=== PATIENT | female | born 1960 | race Caucasian/White ===

== ENCOUNTER 2022-11-03 16:00 | Emergency (ER) | payer MEDICAID, SELFPAY ==
--- NOTE | ~2022-11-03 | CT_ITS ---
EXAMINATION: CT ABDOMEN AND PELVIS WITH CONTRAST CLINICAL INFORMATION: Pain. COMPARISON: None available. TECHNIQUE: Multidetector volumetric images were obtained from the superior aspect of the liver through the pubic symphysis following administration 85 mL of Omnipaque 350 intravenous contrast. Sagittal and coronal reformatted images were obtained on the technologist's workstation. Oral contrast: No This CT examination was performed using dose optimization techniques as appropriate, variously including the following: *Automated exposure control *Adjustment of mA and/or kV according to patient size (this includes techniques or standardized protocols for targeted exams where dose is matched to indication/reason for exam; i.e. extremities or head) *Use of iterative reconstruction technique DLP: 683 mGy-cm FINDINGS: LUNG BASES: No focal consolidation or pleural effusion. LIVER, GALLBLADDER, AND BILIARY TREE: The liver is normal in size, shape and attenuation. There are multiple liver lesions with heterogeneous enhancement, not consistent with cysts, for instance measuring 2.3 cm adjacent to the gallbladder fossa (3:19) and 1 cm in the superior right hepatic lobe (3:10). Normal CT appearance of the gallbladder. No findings to suspect acute cholecystitis. No biliary ductal dilatation. PANCREAS: Diffuse fatty infiltration. No significant peripancreatic free fluid nor fat stranding. The main duct is nondilated. SPLEEN: Unremarkable. ADRENAL GLANDS: Unremarkable. KIDNEYS AND URETERS: Simple cortical cysts in the lower left kidney, for which no imaging follow-up is recommended. Several additional too small to characterize bilateral cortical hypodensities, statistically likely to represent as well simple cysts, for which no imaging follow-up is recommended. Punctate nonobstructive renal calculus in the posterior right mid kidney (3:29). Symmetric nephrograms. No hydronephrosis. No perinephric fat stranding. BLADDER: Partially obscured by streak artifacts from bilateral hip arthroplasty, suboptimally assessed. GASTROINTESTINAL TRACT: Small hiatal hernia with mild circumferential wall thickening of the lower esophagus. The stomach and the small bowel are nondilated. Normal appendix. Colonic diverticulosis. No significant pericolonic inflammatory changes. No bowel obstruction. Moderate to large degree of colonic stool content. ABDOMINAL WALL: Small fat-containing umbilical hernia. LYMPH NODES: No lymphadenopathy. VASCULAR: Atherosclerotic disease. Abdominal aorta is normal in diameter. PELVIC VISCERA: Partially obscured by bilateral hip arthroplasties. Equivocal asymmetric prominence of the left ovary (3:70). Trace amount of free fluid, likely physiologic. OSSEOUS STRUCTURES: Total bilateral hip arthroplasties. Degenerative changes of the spine. No acute or aggressive appearing osseous abnormalities. CT/CT abdomen pelvis w IV con IMPRESSION: 1. Small hiatal hernia with mild circumferential wall thickening of the lower esophagus. Correlate clinically for esophagitis. 2. Colonic diverticulosis but no evidence of acute diverticulitis. 3. Moderate to large degree of colonic stool content suggesting constipation. 4. Multiple liver lesions with heterogeneous enhancement, not consistent with cysts. These are indeterminate, further evaluation with an MR of the abdomen with and without intravenous contrast is recommended. 5. Equivocal asymmetric prominence of the left ovary; the pelvic structures are overall suboptimally assessed due to streak artifacts from bilateral hip arthroplasties. If clinically deemed appropriate, correlation with a pelvic ultrasound could be obtained.
[2022-11-03 16:11] VITALS: BP 122/72; BP 133/75; PULSE 90; PULSE 96; RESP 16; TEMP 37.1; O2SAT 97; O2SAT 98; BMI 31.2
--- NOTE | 2022-11-03 16:39 | ECG_ITS ---
Test Reason : pain Blood Pressure : / mmHG Vent. Rate : 080 BPM Atrial Rate : 080 BPM P-R Int : 186 ms QRS Dur : 098 ms QT Int : 412 ms P-R-T Axes : 056 052 057 degrees QTc Int : 475 ms Normal sinus rhythm with sinus arrhythmia Nonspecific T wave abnormality Prolonged QT Abnormal ECG No previous ECGs available Referred By: Ruben Montesinos Electronically Signed By:NILESH JOHN MD
--- NOTE | 2022-11-03 16:41 | ED_ITS ---
HPI - General Adult General Chief complaint: Abdominal Pain Stated complaint: ABDOMINAL PAIN Time Seen by Provider: 11/03/22 16:31 Source: patient, RN notes reviewed and old records reviewed Mode of arrival: EMS Limitations: no limitations History of Present Illness HPI narrative: 62-year-old female with past medical history significant for lloyd, COPD, history of diverticulitis presents for evaluation of abdominal pain. Patient presents from [facility] for abdominal pain that started last night around 10:00 p.m. She had associated nausea and vomiting Denies any diarrhea, black or bloody stool Denies any fevers Reports a history of previous section no other abdominal surgeries She rates her pain as 10/10, sharp constant and ?all over my belly. ? Related Data Previous Rx's Medication Instructions Recorded docusate sodium 100 mg capsule 100 mg PO BID PRN constipation #14 11/03/22 (Dulcolax Stool Softener caps (docusate)) magnesium citrate 300 ml PO ONCE #296 mL 11/03/22 polyethylene glycol 3350 17 17 g PO DAILY 2 weeks #238 grams 11/03/22 gram/dose oral powder (Miralax) Allergies Allergy/AdvReac Type Severity Reaction Status Date / Time Penicillins Allergy Severe Anaphylaxis Verified 11/03/22 16:39 acetaminophen [From Fioricet] Allergy Mild Rash Verified 11/03/22 16:39 butalbital [From Fioricet] Allergy Mild Rash Verified 11/03/22 16:39 caffeine [From Fioricet] Allergy Mild Rash Verified 11/03/22 16:39 quetiapine [From Seroquel] Allergy Mild Rash Verified 11/03/22 16:39 Sulfa (Sulfonamide Allergy Mild Rash Verified 11/03/22 16:39 Antibiotics) Review of Systems Constitutional: Constitutional: Reports as per HPI, Denies chills, Denies fatigue, Denies fever(s) and Denies headache(s) ENT: Denies headache(s) Cardiovascular: Cardiovascular: Denies chest pain and Denies dyspnea Respiratory: Respiratory: Denies cough and Denies dyspnea Gastrointestinal: Gastrointestinal: Reports abdominal pain, Denies constipation, Reports nausea and Reports vomiting Genitourinary: Genitourinary: Denies dysuria Neurologic: Denies headache(s) and Denies focal weakness Endocrine: Endocrine: Denies fatigue PMFSH Social History Social History Alcohol intake: never Smoked in Last 30 Days: No Use of substances other than those prescribed or required for medical reasons: No Advance Directives: Yes Advance Directives Information Provided: No Advance Directives on File: No Patient : Yes Physical Exam ED Vital Signs: Vital Signs - 24 hr 11/03/22 16:11 11/03/22 20:18 Temperature 98.8 F 98.5 F Pulse Rate 96 82 Respiratory Rate 16 17 Blood Pressure 133/75 125/66 Pulse Oximetry 98 97 Oxygen Delivery Method Room Air Room Air BMI result Body Mass Index 31.2 Const General: healthy appearing, comfortable, no acute distress, alert and awake Nutritional Appearance: well nourished Orientation/consciousness: patient oriented x3 HENMT Head: Yes normocephalic and Yes atraumatic Throat: Yes posterior oropharynx normal Eyes Eyelids: Yes eyelids normal Conjunctivae: conjunctivae normal Sclerae: sclerae normal Corneas: corneas normal Pupils: Equal, round and reactive pupils present EOM: EOMs intact bilaterally Neck Neck: Yes full ROM Resp Effort & Inspection: normal respiratory effort, able to speak in complete sentences, no audible wheezes and not labored Auscultation: clear to auscultation bilaterally Cardio Rate: regular rate Rhythm: regular rhythm GI Inspection: No Abdominal wall edema and No distended Palpation (GI): Soft to palpation, not firm, Tenderness to palpation present (GI) (Diffusely tender without guarding), no guarding and not rigid Auscultation: normoactive bowel sounds Skin General skin exam: no rashes or lesions noted and elasticity normal Neuro General: patient oriented x3 Cranial nerves: Yes Equal, round and reactive pupils present and Yes Bilaterally intact EOM present Cognition (Neuro): normal cognition Extrem Other: Moving all extremities well without any obvious deformities Course Reevaluation(s) Reevaluation #1: Nursing staff had difficult time drawing labs and given IV for the patient's medication and CT scan. I was able to get a 20 gauge ultrasound guided IV in the left upper arm. Time: 18:03 Reevaluation #2: Patient's labs are without significant abnormality. Her CT scan shows a small hiatal hernia and circumferential wall thickening the lower esophagus likely related to GERD. Diverticulosis without evidence of diverticulitis. Moderate to large degree of colonic stool which is likely the cause the patient's discomfort as this is diffuse her abdomen. Multiple liver lesions with heterogeneous enhancement not consistent with cysts. Further evaluation is recommended with MRI. Last night also shows equivocal asymmetric prominence of the left ovary. The patient's pain is mostly periumbilical with little lower abdominal pain, this is not felt to be acute issue. I did discuss all findings with the patient upper Time: 21:07 Medications Administered Discontinued Medications Generic Name Dose Route Start Last Admin Trade Name Luzma PRN Reason Stop Dose Admin Sodium Chloride 1,000 mls @ 999 mls/hr 11/03/22 16:45 11/03/22 19:00 Ns IV 11/03/22 17:45 Infused .Q1H1M MICHELINE Infusion Iohexol 100 ml 11/03/22 18:38 11/03/22 18:38 Iohexol 350 Mg/Ml 100 Ml Infus..Btl IV 11/03/22 18:39 85 ml ONCE ONE Administration Metoclopramide HCl 10 mg 11/03/22 19:51 11/03/22 20:10 Metoclopramide Hcl 10 Mg/2 Ml Vial IVPUSH 11/03/22 19:52 10 mg ONCE ONE Administration Morphine Sulfate 4 mg 11/03/22 16:39 11/03/22 18:00 Morphine Sulfate 4 Mg/Ml Cartridge IVPUSH 11/03/22 16:40 4 mg ONCE ONE Administration Protocol Ondansetron HCl 4 mg 11/03/22 16:39 11/03/22 18:00 Ondansetron Hcl 4 Mg/2 Ml Vial IVPUSH 11/03/22 16:40 4 mg ONCE ONE Administration Medical Decision Making Medical Decision Making MDM Narrative: 62-year-old female presents for evaluation abdominal pain. Her abdominal exam is reassuring, soft nondistended and without guarding. Will get basic labs, treat her pain with IV fluids, morphine, Zofran. Will get a UA as well and a CT scan of the abdomen pelvis Differential Diagnosis Abdominal pain Colitis Diverticulitis Acute abdominal pain Gastroenteritis Peptic ulcer disease Pancreatitis Cholelithiasis Acute cholecystitis Lab Data 11/03/22 17:28 Labs: Lab Results 11/03/22 11/03/22 11/03/22 Range/Units 17:21 17:28 17:58 WBC 5.7 (4.8-10.8) X10*3/uL RBC 4.42 (4.20-5.50) X10*6/uL Hgb 12.6 (12.0-16.0) g/dl Hct 38.7 (37.0-47.0) % MCV 87.6 (80.0-98.0) fL MCH 28.5 (27.0-33.0) pg MCHC 32.6 (31.0-35.0) g/dl RDW 14.4 (11.0-16.0) % Plt Count 194 (160-400) X10*3/uL MPV 11.0 (9.4-12.3) fL Immature Gran % (Auto) 0.3 (0.0-0.4) % Neut % (Auto) 45.4 (45-73) % Lymph % (Auto) 42.6 H (20-40) % Tucker % (Auto) 7.9 (2-11) % Eos % (Auto) 2.8 (0-4) % Baso % (Auto) 1.0 (0-2) % Lymph # (Auto) 2.4 (1.2-4.9) X10*3/uL Tucker # (Auto) 0.5 (0.1-1.2) X10*3/uL Eos # (Auto) 0.2 (0.0-0.4) X10*3/uL Baso # (Auto) 0.1 (0.0-0.2) X10*3/uL Abs Immat Gran (auto) 0.02 (0.00-0.03) X10*3/uL Absolute Neuts (auto) 2.6 (2.0-8.3) x10*3/uL Absolute Nucleated RBC 0.000 (0.0-0.012) X10*3/uL Nucleated RBC % (auto) 0.0 (0.0-0.2) /100WBC Smear Tech's Comments VERIFIED Sodium 142 (135-145) mmol/L Potassium 4.3 (3.3-5.1) mmol/L Chloride 108 (96-108) mmol/L Carbon Dioxide 30 H (22-29) mmol/L Anion Gap 8 L (12-20) BUN 13 (9-16) mg/dL Creatinine 0.86 (0.5-1.4) mg/dL Estim Creat Clear Calc 69.5 Estimated GFR > 60 Random Glucose 87 (60-115) mg/dL Calcium 9.6 (8.4-10.2) mg/dL Magnesium 2.0 (1.6-2.6) mg/dL Total Bilirubin 0.7 (0.0-1.0) mg/dL AST 13 (5-31) U/L ALT 12 (0-31) U/L Alkaline Phosphatase 79 (39-117) U/L Total Protein 6.4 L (6.5-8.0) g/dL Albumin 4.3 (3.5-5.0) g/dL Lipase 24 (8-78) U/L Urine Color Yellow Urine Appearance Clear Urine pH 8.5 (5.0-9.0) Ur Specific [place] 1.010 (1.005-1.025) Urine Protein Negative (Neg-Trace) mg/dL Urine Glucose (UA) Negative (Negative) mg/dL Urine Ketones Negative (Negative) mg/dL Urine Blood Negative (Negative) Urine Nitrite Negative (Negative) Ur Leukocyte Esterase Trace H (Negative) Urine RBC 0-2 (0-2) /HPF Urine WBC 0-5 (0-5) /HPF Ur Squamous Epith Cells 0-2 (0-2) /HPF Urine Bacteria None Seen (None Seen) Hyaline Casts 0-2 (0-2) /LPF Discharge Plan Discharge Clinical Impression: Constipation Patient Disposition: Home, Self-Care Instructions: Constipation (ED) Additional Instructions: Your CT scan shows a large amount of constipation which is likely the cause of your abdominal pain today. You should increase fluid intake, increase fiber intake in her diet. Take MiraLax every day for the next 2 weeks You should use Dulcolax twice daily Use magnesium citrate, drink entire bottle tomorrow Your CT scan also showed multiple liver lesions which require further evaluation on outpatient basis. Talk your doctor, as you should have an MRI with and without IV contrast to better evaluate these. This should be done within the next month Prescriptions: New polyethylene glycol 3350 [Miralax] 17 gram/dose powder 17 g PO DAILY 14 Days Qty: 238 0RF docusate sodium [Dulcolax Stool Softener (dss)] 100 mg capsule 100 mg PO BID PRN (Reason: constipation) Qty: 14 0RF magnesium citrate Solution 300 ml PO ONCE Qty: 296 0RF
--- OUTSIDE RECORDS SUMMARY | 2022-11-03 16:51 | XMS_ITS | Continuity of Care Document ---
Author Name Unknown Address [address] [place] [address] Phone [facility] Address [address] [place] [address] Phone Care Team Providers Care Rag Room Supervisor Name Role Phone Alan Guy Emergency Provider [phone] Pcp-Md Jc Primary Care Provider Ulisses Peralta Emergency Provider [phone] Jessica Andino Other Provider [email or web address] [email or web address] Chung Emergency Provider Tyler Hernandez Primary Care Provider [phone] Allergies, Adverse Reactions, Alerts Allergen Type Severity Reaction Last Updated Verified Status Penicillins Allergy Unknown November 10, 2020 12:56pm Yes Active quetiapine Allergy Unknown November 10, 2020 12:56pm Yes Active Sulfa (Sulfonamide Antibiotics) Allergy Unknown November 10, 2020 12:56pm Yes Active Medications Medication Status Dose Units Route Directions Qty Days St art Date End Date Instructions Ondansetron Hcl (Zofran) 4 MG Tablet Active 4 MG PO EVERY 8 HOURS 8 November 06, 2020 4:46pm Tramadol (Ultram) 50 MG Tablet Active 50 MG PO EVERY 6 HOURS 12 November 10, 2020 2:39pm Partial fill available on patient request. Problems Active Problems Medical Problem Onset Date Status Nontraumatic hematoma of skin and subcutaneous t issue Active Abdominal pain Active Chest pain Active Procedures Procedure Date Performed Status US abdomen limited November 10, 2020 11:50am complet ed CT abdomen pelvis w con November 10, 2020 12:48pm co mpleted CT abdomen pelvis w con November 06, 2020 2:22pm com pleted EKG ED Electrocardiogram November 06, 2020 2:23pm co mpleted EKG ED Electrocardiogram November 03, 2020 2:52pm co mpleted XR chest 2V November 03, 2020 2:52pm completed CT angio chest with contrast November 03, 2020 4:29p m completed Relevant Diagnostic Tests and/or Laboratory Data Laboratory Results Test Date/Time Result Interpretation Reference Range Result Comment Performing Site White Blood Count November 10, 2020 11:40am 10.9 X10 3/uL 4.5-11.0 [facility], [address] [place] [address] White Blood Count November 06, 2020 2:45pm 14.2 X10 3/uL 4.5-11.0 [facility], [address] [place] [address] White Blood Count November 03, 2020 2:59pm 8.6 X10 3/uL 4.5-11.0 [facility], [address] [place] [address] Red Blood Count November 10, 2020 11:40am 3.93 X10 6/uL 3.70-5.00 [facility], [address] [place] [address] Red Blood Count November 06, 2020 2:45pm 3.88 X10 6/uL 3.70-5.00 [facility], [address] [place] [address] Red Blood Count November 03, 2020 2:59pm 3.96 X10 6/uL 3.70-5.00 [facility], [address] [place] [address] Hemoglobin November 10, 2020 11:40am 11.6 g/dl 11.0-16.0 [facility], [address] [place] [address] Hemoglobin November 06, 2020 2:45pm 11.4 g/dl 11.0-16.0 [facility], [address] [place] [address] Hemoglobin November 03, 2020 2:59pm 11.6 g/dl 11.0-16.0 [facility], [address] [place] [address] Hematocrit November 10, 2020 11:40am 35.9 % 33.5-45.0 [facility], [address] [place] [address] Hematocrit November 06, 2020 2:45pm 35.2 % 33.5-45.0 [facility], [address] [place] [address] Hematocrit November 03, 2020 2:59pm 36.9 % 33.5-45.0 [facility], [address] [place] [address] Mean Corpuscular Volume November 10, 2020 11:40am 91.3 fl 80.0-100.0 [facility], [address] [place] [address] Mean Corpuscular Volume November 06, 2020 2:45pm 90.7 fl 80.0-100.0 [facility], [address] [place] [address] Mean Corpuscular Volume November 03, 2020 2:59pm 93.2 fl 80.0-100.0 [facility], [address] [place] [address] Mean Corpuscular Hemoglobin November 10, 2020 11:40am 29.5 pg 27.0-34.0 [facility], [address] [place] [address] Mean Corpuscular Hemoglobin November 06, 2020 2:45pm 29.4 pg 27.0-34.0 [facility], [address] [place] [address] Mean Corpuscular Hemoglobin November 03, 2020 2:59pm 29.3 pg 27.0-34.0 [facility], [address] [place] [address] Mean Corpuscular Hemoglobin Concent November 10, 2020 11:40am 32.3 g/dl 31.0-36.0 [facility], [address] [place] [address] Mean Corpuscular Hemoglobin Concent November 06, 2020 2:45pm 32.4 g/dl 31.0-36.0 [facility], [address] [place] [address] Mean Corpuscular Hemoglobin Concent November 03, 2020 2:59pm 31.4 g/dl 31.0-36.0 [facility], [address] [place] [address] Red Cell Distribution Width November 10, 2020 11:40am 13.4 % 11.5-15.0 [facility], [address] [place] [address] Red Cell Distribution Width November 06, 2020 2:45pm 13.2 % 11.5-15.0 [facility], [address] [place] [address] Red Cell Distribution Width November 03, 2020 2:59pm 13.2 % 11.5-15.0 [facility], [address] [place] [address] Platelet Count November 10, 2020 11:40am 184 X10 3/uL 150-400 [facility], [address] [place] [address] Platelet Count November 06, 2020 2:45pm 191 X10 3/uL 150-400 [facility], [address] [place] [address] Platelet Count November 03, 2020 2:59pm 191 X10 3/uL 150-400 [facility], [address] [place] [address] Immature Granulocyte % (Auto) November 10, 2020 11:40am 1.0 % [facility], [address] [place] [address] Immature Granulocyte % (Auto) November 06, 2020 2:45pm 1.7 % [facility], [address] [place] [address] Neutrophils (%) (Auto) November 10, 2020 11:40am 75.4 % [facility], [address] [place] [address] Neutrophils (%) (Auto) November 06, 2020 2:45pm 80.0 % [facility], [address] [place] [address] Neutrophils (%) (Auto) November 03, 2020 2:59pm Not Reportable [facility], [address] [place] [address] Lymphocytes (%) (Auto) November 10, 2020 11:40am 15.4 % [facility], [address] [place] [address] Lymphocytes (%) (Auto) November 06, 2020 2:45pm 11.7 % [facility], [address] [place] [address] Lymphocytes (%) (Auto) November 03, 2020 2:59pm Not Reportable [facility], [address] [place] [address] Monocytes (%) (Auto) November 10, 2020 11:40am 6.6 % [facility], [address] [place] [address] Monocytes (%) (Auto) November 06, 2020 2:45pm 5.4 % [facility], [address] [place] [address] Monocytes (%) (Auto) November 03, 2020 2:59pm Not Reportable [facility], [address] [place] [address] Eosinophils (%) (Auto) November 10, 2020 11:40am 1.3 % [facility], [address] [place] [address] Eosinophils (%) (Auto) November 06, 2020 2:45pm 0.9 % [facility], [address] [place] [address] Eosinophils (%) (Auto) November 03, 2020 2:59pm Not Reportable [facility], [address] [place] [address] Basophils (%) (Auto) November 10, 2020 11:40am 0.3 % [facility], [address] [place] [address] Basophils (%) (Auto) November 06, 2020 2:45pm 0.3 % [facility], [address] [place] [address] Basophils (%) (Auto) November 03, 2020 2:59pm Not Reportable [facility], [address] [place] [address] Immature Granulocyte # (Auto) November 10, 2020 11:40am 0.11 X10 3/uL 0.00-0.09 [facility], [address] [place] [address] Immature Granulocyte # (Auto) November 06, 2020 2:45pm 0.24 X10 3/uL 0.00-0.09 [facility], [address] [place] [address] Neutrophils # (Auto) November 10, 2020 11:40am 8.3 X10 3/uL 1.5-7.8 [facility], [address] [place] [address] Neutrophils # (Auto) November 06, 2020 2:45pm 11.4 X10 3/uL 1.5-7.8 [facility], [address] [place] [address] Neutrophils # (Auto) November 03, 2020 2:59pm Not Reportable [facility], [address] [place] [address] Lymphocytes # (Auto) November 10, 2020 11:40am 1.7 X10 3/uL 1.0-4.8 [facility], [address] [place] [address] Lymphocytes # (Auto) November 06, 2020 2:45pm 1.7 X10 3/uL 1.0-4.8 [facility], [address] [place] [address] Lymphocytes # (Auto) November 03, 2020 2:59pm Not Reportable [facility], [address] [place] [address] Monocytes # (Auto) November 10, 2020 11:40am 0.7 X10 3/uL 0.0-0.8 [facility], [address] [place] [address] Monocytes # (Auto) November 06, 2020 2:45pm 0.8 X10 3/uL 0.0-0.8 [facility], [address] [place] [address] Eosinophils # (Auto) November 10, 2020 11:40am 0.1 X10 3/uL 0.0-0.5 [facility], [address] [place] [address] Eosinophils # (Auto) November 06, 2020 2:45pm 0.1 X10 3/uL 0.0-0.5 [facility], [address] [place] [address] Basophils # (Auto) November 10, 2020 11:40am 0.0 X10 3/uL 0.0-0.2 [facility], [address] [place] [address] Basophils # (Auto) November 06, 2020 2:45pm 0.0 X10 3/uL 0.0-0.2 [facility], [address] [place] [address] Basophils # (Auto) November 03, 2020 2:59pm Not Reportable [facility], [address] [place] [address] Neutrophils % (Manual) November 03, 2020 2:59pm 52 % [facility], [address] [place] [address] Lymphocytes % (Manual) November 03, 2020 2:59pm 31 % [facility], [address] [place] [address] Monocytes % (Manual) November 03, 2020 2:59pm 9 % [facility], [address] [place] [address] Eosinophils % (Manual) November 03, 2020 2:59pm 5 % [facility], [address] [place] [address] Basophils % (Manual) November 03, 2020 2:59pm 1 % [facility], [address] [place] [address] Promyelocytes % (Manual) November 03, 2020 2:59pm 2 % 0-0 [facility], [address] [place] [address] Neutrophils # (Manual) November 03, 2020 2:59pm 4.5 X10 3/uL 1.5-7.8 [facility], [address] [place] [address] Lymphocytes # (Manual) November 03, 2020 2:59pm 2.7 X10 3/uL 1.0-4.8 [facility], [address] [place] [address] Monocytes # (Manual) November 03, 2020 2:59pm 0.8 X10 3/uL 0.0-0.8 [facility], [address] [place] [address] Eosinophils # (Manual) November 03, 2020 2:59pm 0.4 X10 3/uL 0.0-0.5 [facility], [address] [place] [address] Basophils # (Manual) November 03, 2020 2:59pm 0.1 X10 3/uL 0.0-0.2 [facility], [address] [place] [address] Platelet Estimate November 03, 2020 2:59pm Adequate [facility], [address] [place] [address] Platelet Morphology Comment November 03, 2020 2:59pm Normal morphology [facility], [address] [place] [address] Polychromasia November 03, 2020 2:59pm Slight [facility], [address] [place] [address] Microcytosis November 03, 2020 2:59pm Moderate [facility], [address] [place] [address] Ovalocytes November 03, 2020 2:59pm Slight [facility], [address] [place] [address] Nucleated Red Blood Cells % November 10, 2020 11:40am 0.0 /100 WBC 0.0-0.0 [facility], [address] [place] [address] Nucleated Red Blood Cells % November 06, 2020 2:45pm 0.0 /100 WBC 0.0-0.0 [facility], [address] [place] [address] Nucleated Red Blood Cells % November 03, 2020 2:59pm 0.0 /100 WBC 0.0-0.0 [facility], [address] [place] [address] Urine Color November 10, 2020 11:15am Colorless Yellow [facility], [address] [place] [address] Urine Color November 06, 2020 4:10pm Yellow Yellow [facility], [address] [place] [address] Urine Clarity November 10, 2020 11:15am Clear Clear [facility], [address] [place] [address] Urine Clarity November 06, 2020 4:10pm Clear Clear [facility], [address] [place] [address] Urine pH November 10, 2020 11:15am 6.0 5.0-8.0 [facility], [address] [place] [address] Urine pH November 06, 2020 4:10pm 7.0 5.0-8.0 [facility], [address] [place] [address] Urine Specific [place] November 10, 2020 11:15am 1.002 1.003-1.03 0 [facility], [address] [place] [address] Urine Specific [place] November 06, 2020 4:10pm 1.027 1.003-1.03 0 [facility], [address] [place] [address] Urine Blood November 10, 2020 11:15am Negative mg/dl Negative [facility], [address] [place] [address] Urine Blood November 06, 2020 4:10pm Negative mg/dl Negative [facility], [address] [place] [address] Urine Protein November 10, 2020 11:15am Negative mg/dl Negative [facility], [address] [place] [address] Urine Protein November 06, 2020 4:10pm Negative mg/dl Negative [facility], [address] [place] [address] Urine Glucose (UA) November 10, 2020 11:15am Negative mg/dl Negative [facility], [address] [place] [address] Urine Glucose (UA) November 06, 2020 4:10pm Negative mg/dl Negative [facility], [address] [place] [address] Urine Ketones November 10, 2020 11:15am Negative mg/dl Negative [facility], [address] [place] [address] Urine Ketones November 06, 2020 4:10pm Negative mg/dl Negative [facility], [address] [place] [address] Urine Nitrate November 10, 2020 11:15am Negative Negative [facility], [address] [place] [address] Urine Nitrate November 06, 2020 4:10pm Negative Negative [facility], [address] [place] [address] Urine Bilirubin November 10, 2020 11:15am Negative mg/dl Negative [facility], [address] [place] [address] Urine Bilirubin November 06, 2020 4:10pm Negative mg/dl Negative [facility], [address] [place] [address] Urine Urobilinogen November 10, 2020 11:15am Normal mg/dl Normal [facility], [address] [place] [address] Urine Urobilinogen November 06, 2020 4:10pm Normal mg/dl Normal [facility], [address] [place] [address] Urine Leukocyte Esterase November 10, 2020 11:15am Negative Negative [facility], [address] [place] [address] Urine Leukocyte Esterase November 06, 2020 4:10pm Negative Negative [facility], [address] [place] [address] Sodium Level November 10, 2020 11:40am 138 mmol/L 137-146 [facility], [address] [place] [address] Sodium Level November 06, 2020 1:55pm 135 mmol/L 137-146 [facility], [address] [place] [address] Sodium Level November 03, 2020 2:59pm 139 mmol/L 137-146 [facility], [address] [place] [address] Potassium Level November 10, 2020 11:40am 4.0 mmol/L 3.5-5.3 [facility], [address] [place] [address] Potassium Level November 06, 2020 1:55pm 5.2 mmol/L 3.5-5.3 Gross hemolysis, please redraw specimen [facility], [address] [place] [address] Potassium Level November 03, 2020 2:59pm 3.8 mmol/L 3.5-5.3 [facility], [address] [place] [address] Chloride Level November 10, 2020 11:40am 105 mmol/L 98-107 [facility], [address] [place] [address] Chloride Level November 06, 2020 1:55pm 105 mmol/L 98-107 [facility], [address] [place] [address] Chloride Level November 03, 2020 2:59pm 105 mmol/L 98-107 [facility], [address] [place] [address] Carbon Dioxide Level November 10, 2020 11:40am 21 mmol/L 23-32 [facility], [address] [place] [address] Carbon Dioxide Level November 06, 2020 1:55pm 19 mmol/L -32 [facility], [address] [place] [address] Carbon Dioxide Level November 03, 2020 2:59pm 21 mmol/L 23-32 [facility], [address] [place] [address] Anion Gap November 10, 2020 11:40am 12 mmol/L 5-15 [facility], [address] [place] [address] Anion Gap November 06, 2020 1:55pm 11 mmol/L 5-15 [facility], [address] [place] [address] Anion Gap November 03, 2020 2:59pm 13 mmol/L 11-16 [facility], [address] [place] [address] Blood Urea Nitrogen November 10, 2020 11:40am 14 mg/dl 11-26 [facility], [address] [place] [address] Blood Urea Nitrogen November 06, 2020 1:55pm 22 mg/dl 11-26 [facility], [address] [place] [address] Blood Urea Nitrogen November 03, 2020 2:59pm 20 mg/dl 11-26 [facility], [address] [place] [address] Creatinine November 10, 2020 11:40am 0.8 mg/dL 0.5-1.1 [facility], [address] [place] [address] Creatinine November 06, 2020 1:55pm 0.9 mg/dL 0.5-1.1 [facility], [address] [place] [address] Creatinine November 03, 2020 2:59pm 0.8 mg/dL 0.5-1.1 [facility], [address] [place] [address] Estimated Creatinine Clearance November 10, 2020 11:40am 78.6 ml/min This value is calculated by Cockcroft Gault Equation using ideal body weight. This result is dependent on an accurate patient height and weight which is obtained from patients medical record. Arjuncroft, D.W. and M.H. Gault. Prediction of creatinine clearance from serum creatinine. Nephron. 1976. 16(1):31-41 . [facility], [address] [place] [address] Estimated Creatinine Clearance November 06, 2020 1:55pm 69.7 ml/min This value is calculated by Cockcroft Gault Equation using ideal body weight. This result is dependent on an accurate patient height and weight which is obtained from patients medical record. Cockcroft, D.W. and M.H. Gault. Prediction of creatinine clearance from serum creatinine. Nephron. 1975. 16(1):31-41 . [facility], [address] [place] [address] Estimated Creatinine Clearance November 03, 2020 2:59pm 76.3 ml/min This value is calculated by Cockcroft Gault Equation using ideal body weight. This result is dependent on an accurate patient height and weight which is obtained from patients medical record. Cockcroft, D.W. and M.H. Gault. Prediction of creatinine clearance from serum creatinine. Nephron. 1976. 16(1):31-41 . [facility], [address] [place] [address] Estimated GFR () November 10, 2020 11:40am 92 >60 [facility], [address] [place] [address] Estimated GFR () November 06, 2020 1:55pm 80 >60 [facility], [address] [place] [address] Estimated GFR () November 03, 2020 2:59pm 92 >60 [facility], [address] [place] [address] Estimated GFR (Non- November 10, 2020 11:40am 80 >60 [facility], [address] [place] [address] Estimated GFR (Non- November 06, 2020 1:55pm 69 >60 [facility], [address] [place] [address] Estimated GFR (Non- November 03, 2020 2:59pm 80 >60 [facility], [address] [place] [address] BUN/Creatinine Ratio November 10, 2020 11:40am 17.5 10.0-20.0 [facility], [address] [place] [address] BUN/Creatinine Ratio November 06, 2020 1:55pm 24.4 10.0-20.0 [facility], [address] [place] [address] BUN/Creatinine Ratio November 03, 2020 2:59pm 25.0 10.0-20.0 [facility], [address] [place] [address] Glucose Level November 10, 2020 11:40am 94 mg/dL [facility], [address] [place] [address] Glucose Level November 06, 2020 1:55pm 95 mg/dL [facility], [address] [place] [address] Glucose Level November 03, 2020 2:59pm 125 mg/dL [facility], [address] [place] [address] Calcium Level November 10, 2020 11:40am 9.3 mg/dl 8.6-10.3 [facility], [address] [place] [address] Calcium Level November 06, 2020 1:55pm 8.7 mg/dl 8.6-10.3 [facility], [address] [place] [address] Calcium Level November 03, 2020 2:59pm 8.8 mg/dl 8.6-10.3 [facility], [address] [place] [address] Total Bilirubin November 10, 2020 11:40am 0.5 mg/dl <1.1 [facility], [address] [place] [address] Total Bilirubin November 06, 2020 1:55pm 0.3 mg/dl <1.1 [facility], [address] [place] [address] Aspartate Amino Transf (AST/SGOT) November 10, 2020 11:40am 15 U/L 15-41 [facility], [address] [place] [address] Aspartate Amino Transf (AST/SGOT) November 06, 2020 1:55pm 29 U/L 15-41 Specimen hemolyzed, results affected, evaluate with caution. [facility], [address] [place] [address] Alanine Aminotransferase (ALT/SGPT) November 10, 2020 11:40am 22 U/L 14-54 [facility], [address] [place] [address] Alanine Aminotransferase (ALT/SGPT) November 06, 2020 1:55pm 15 U/L 14-54 Gross hemolysis, evaluate with caution [facility], [address] [place] [address] Troponin T November 06, 2020 1:55pm < 0.01 ng/ml [facility], [address] [place] [address] Troponin T November 03, 2020 2:59pm < 0.01 ng/ml [facility], [address] [place] [address] Total Protein November 10, 2020 11:40am 6.5 g/dL 6.4-8.3 [facility], [address] [place] [address] Total Protein November 06, 2020 1:55pm 6.3 g/dL 6.4-8.3 [facility], [address] [place] [address] Albumin November 10, 2020 11:40am 4.2 g/dl 4.0-5.0 [facility], [address] [place] [address] Albumin November 06, 2020 1:55pm 3.6 g/dl 4.0-5.0 [facility], [address] [place] [address] Albumin/Globulin Ratio November 10, 2020 11:40am 1.8 1.0-2.6 [facility], [address] [place] [address] Albumin/Globulin Ratio November 06, 2020 1:55pm 1.3 1.0-2.6 [facility], [address] [place] [address] Alkaline Phosphatase November 10, 2020 11:40am 89 U/L 35-104 [facility], [address] [place] [address] Alkaline Phosphatase November 06, 2020 1:55pm 77 U/L 35-104 Gross hemolysis, evaluate with caution [facility], [address] [place] [address] Lipase November 10, 2020 11:40am 35 U/L 13-60 [facility] [address] [place] [address] Lipase November 06, 2020 1:55pm 40 U/L 13-60 [facility], [address] [place] [address] Diagnostic Imaging Reports Report Dictated Date/Time Dictated By Status Radiology Report November 03, 2020 4:18pm Bhumi Kelley MD completed [facility] [address] [place] [address] Patient Name: Racquel Khan Medical Record#: [id number] Address: [address] [place] [address] City/State/Zip: [place] [address]: Desean Guy MD Insurance: [employer] [facility] Re quired /Age/Sex: 1960/60/F Self Pay Admit/Reg Date: 11/03/[address]: Alan Guy MD Location: ED.HM/ PCP: Pcp-Md MARTHA Greene Date of Service: 11/03/20 Order (s): XR chest 2V CPT Code: 81709 Report Number: [id number] Reason for Exam: Chest Pain Patient name: RACQUEL KHAN INDICATION:Chest pain PRIORS:None available. FINDINGS: Two views of the chest. The cardiac silhouette and mediastinum are normal in size and contour. The lungs are clear without pneumonia, pleural effusions, or pulmonary edema. IMPRESSION: No acute cardiopulmonary disease. Dictated By: Bhumi Kelley MD 11/03/201617 Signed By: Bhumi Kelley MD 11/03/201617 TD/TT: 11/03/201617Tech: [id number] cc: MCEST; PCPNO* PcpMd Lino ; Alan Guy MD Radiology Report November 03, 2020 5:05pm Sheldon Burnette MD completed [facility] at [address] [address] Patient Name: Racquel Khan Medical Record#: [id number] Address: [address] [place] [address] City/State/Zip: [place] [address]: Desean Guy MD Insurance: [facility] Re quired /Age/Sex: 1960/60/F Self Pay Admit/Reg Date: 11/03/[address]: Alan Guy MD Location: ED.HM/ PCP: PcpMd MARTHA Huynh Date of Service: 11/03/20 Order (s): CT angio chest with contrast CPT Code: 67288 Report Number: [id number] Reason for Exam: chest pain,shortness of breath CT PULMONARY ANGIOGRAPHY ([id number]) Technique: Noncontrast asbestos microscopist image and axial localizer images performed prior to intravenous contrast administration.Automated exposure control and iterative reconstruction techniques were used. Intravenous contrast administered at 3-4 cc per second. Axial images obtained through the chest during vascular enhancement. Multiplanar MIP images generated on CT scanner. History: chest pain,shortness of breath Automated exposure control and iterative reconstruction techniques were used. Findings: The pulmonary arteries are well opacified. No evidence of any intraluminal filling defects nor vascular cutoff are noted. The lung parenchyma is clear. No pleural reaction is seen. No evidence of hilar nor mediastinal lymphadenopathy is noted. IMPRESSION: No evidence of pulmonary thromboembolic disease. Dictated By: Sheldon Burnette MD 11/03/201704 Signed By: Sheldon Orlando MD 11/03/201707 TD/TT: 11/03/20 1705Tech: [id number] cc: MCEST; PCPNO* Pcp-Md Jc ; Alan Guy MD Radiology Report November 06, 2020 3:30pm César Dawkins MD completed [facility] at [address] [place] [address] Patient Name: Racquel Khan Medical Record#: [id number] Address: [address] [place] [address] City/State/Zip: [place] [address]: Ulisses Phillips MD Insurance: [facility] Re quired /Age/Sex: 1960/60/F Self Pay Admit/Reg Date: 11/06/[address]: Jessica Andino, [facility] Location: ED.HM/ PCP: Pcp-Md MARTHA Greene Date of Service: 11/06/20 Order (s): CT abdomen pelvis w con CPT Code: 36156 Report Number: [id number] Reason for Exam: abd pain, nausea Patient name: Racquel Khan Exam: CT abdomen pelvis w con Technique: CT of the abdomen and pelvis with intravenous contrast. Axial as well as coronal and sagittal reformatted images were reviewed. All CT scans at this facility use at least one of these dose optimization techniques; automated exposure control, MA and or KV adjustment per patient size (includes targeted exams where dose is matched to clinical indication), or iterative reconstruction. Procedure Date and Time:11/06/2020 3:16 PM Indication: abd pain, nausea Comparison: None. Intravenous Contrast: Omnipaque 350 100 ml. Oral Contrast: Findings: LOWER THORAX: Unremarkable LIVER: Liver attenuation is unremarkable. Small hepatic cysts BILIARY: No radio-opaque gallstones. No biliary dilatation. SPLEEN: Unremarkable. ADRENALS: Unremarkable. PANCREAS: Subtle haziness of the pancreas. Exclude pancreatitis. KIDNEYS/URETERS: There is no hydronephrosis or enhancement abnormality. Left renal cyst GI TRACT: There is no abnormal distention or focal inflammatory process of the GI tract. PELVIC ORGANS/BLADDER: No abnormal pelvic masses. Full bladder PERITONEUM/RETROPERITONEUM: No free air. No free fluid. No unusual vascular findings for the patient's age. No lymphadenopathy. BONES AND SOFT TISSUES: Bilateral hip replacements IMPRESSION: SUBTLE HAZINESS OF THE PANCREAS. EXCLUDE PANCREATITIS Dictated By: César Dawkins MD 11/06/20 153 Signed By: César Dawkins MD 11/06/20 153 TD/TT: 11/06/20 1530Tech: [id number] cc: GIGI; RIN HALL* Ulisses Phillips MD; Jessica Andino PAC; Pcp-Md Jc Radiology Report November 10, 2020 1:41pm Heidi Wahl MD completed [address] [place] [address] [address] Patient Name: Racquel Khan Medical Record#: [id number] Address: [address] [place] [address] City/State/Zip: [place] [address]: Javier laguerre MD Insurance: [facility] Re quired /Age/Sex: 1960/60/F Self Pay Admit/Reg Date: 11/10/[address]: Andrew Todd Location: ED.HM/ PCP: Tyler Hernandez Date of Service: 11/10/20 Order (s): US abdomen limited CPT Code: 86384 Report Number: [id number] Reason for Exam: ruq pain with rebound Exam: US abdomen limited Indication: ruq pain with rebound Comparison: Images from a CT scan from 11/06/2020 Findings:Sonographic examination of the right upper quadrant was performed.There is a 1.7 x 1.2 x 1.2 cm cyst in the left lobe of the liver. Other smaller cysts also seen. There is no biliary ductal dilatation. The common duct measures 4 mm. The gallbladder appears unremarkable. No gallstones are seen. The right kidney measures 11.1 cm in length. There is no hydronephrosis. There is a 6 mm cyst that appears to be at the anterior edge of body the pancreas, no soft tissue component seen within it. On review of the CT images, it appears that there is one at the edge of the pancreas, quite subtle and better seen on sagittal and coronal images. The pancreas otherwise appears unremarkable. The visualized IVC has an unremarkable ultrasound appearance. IMPRESSION: NO EVIDENCE OF CHOLELITHIASIS OR CHOLECYSTITIS. SMALL BENIGN-APPEARING CYSTS IN THE LIVER. SMALL CYST AT THE ANTERIOR EDGE OF THE BODY OF THE PANCREAS, LIKELY BENIGN BUT RECOMMEND FOLLOW-UP ULTRASOUND IN SIX MONTHS TO ASSESS FOR STABILITY. Dictated By: Heidi Wahl MD 11/10/201340 Signed By: Heidi Wahl MD 11/10/20 1348 TD/TT: 11/10/201340Tech: [id number] cc: RADHA; CORINE* Tyler Hernandez; Javier Chung MD Radiology Report November 10, 2020 1:53pm Heidi Wahl MD completed [facility] at [address] [address] Patient Name: Racquel Khan Medical Record#: [id number] Address: [address] [place] [address] City/State/Zip: [place] [address]: Javier laguerre MD Insurance: [employer] [facility] Re quired /Age/Sex: 1960/60/F Self Pay Admit/Reg Date: 11/10/[address]: Andrew Todd Location: ED.HM/ PCP: Tyler Hernandez Date of Service: 11/10/20 Order (s): CT abdomen pelvis w con CPT Code: 08258 Report Number: [id number] Reason for Exam: severe pain to the right middle abdomin ADDENDUM There are two round foci in the subcutaneous fat in the antrum anterior abdominal wall on the right and one seen on the left. One of these has a focus of air in it on the 11/06/2020 study so these are likely injection granulomas. No inflammation seen surrounding them. Addendum Dictated By: Heidi Wahl MD Addendum Signed By: Heidi Wahl MD 11/10/20 1501 DD/ /25/1459 TD/TT: 11/10/2003/25/1459 Exam: CT abdomen pelvis w con Technique: Spiral CT of the abdomen and pelvis with intravenous contrast. Multiplanar reconstructions were obtained, reviewed, and archived. Dose modulation with automated exposure control was used as dose reduction technique during the acquisition. Indication: severe pain to the right middle abdomin Additional clinical history:None. Comparison: 11/06/2020 Intravenous Contrast:100 cc of Omnipaque 350. Oral contrast:None. Findings: The visualized lung bases appear clear. There is no pleural effusion. There are several small cysts in the liver, largest is in the left lobe and measures 12 mm. There is no biliary ductal dilatation. The gallbladder has an unremarkable CT appearance. The spleen and adrenal glands appear unremarkable. There is a small cyst at the anterosuperior edge of the pancreas as better seen on ultrasound from earlier today, measures 6 mm. No definite convincing inflammation around the pancreas. There is a 2 mm calculus at the upper pole of the right kidney. No ureteral calculus. No hydronephrosis. There are renal cysts. The largest is in lower pole of the left kidney and measures 1.7 cm The appendix is retrocecal, extending to the right mid abdomen. Is mildly prominent, measures probably 7-8 mm. It appears slightly denser at the midportion, may be due to wall or contents, if the wall raises the possibility of hyperemia. However, some increased density was also seen on the prior and the size is similar to on the prior. Wall actually appeared slightly thicker on the prior. No inflammation is seen surrounding it so no convincing evidence of appendicitis. There is diverticulosis without evidence of diverticulitis. Evaluation of the pelvic organs is limited by severe artifact from bilateral hip prostheses. The uterus and adnexal regions appear to be unremarkable. Urinary bladder appears unremarkable. There is arterial calcification without an abdominal aortic aneurysm. Bilateral hip prostheses are in place. There is an incidental L5-S1 disc bulge without spinal canal or neural foraminal stenosis. There is a small fat-containing umbilical hernia. There are surgical clips in the right pelvis. IMPRESSION: NO DEFINITE ABNORMALITY IDENTIFIED TO ACCOUNT FOR THE PATIENT'S SYMPTOMS. RETROCECAL APPENDIX. APPENDIX IS SLIGHTLY PROMINENT WITH SLIGHTLY INCREASED DENSITY IN THE MIDPORTION THAT MAY BE DUE TO SLIGHT HYPEREMIA OR CONTENTS, DISCUSSED ABOVE, BUT APPEARS SIMILAR TO ON 11/06/2020 AND WITH NO INFLAMMATION AROUND IT, SO NO DEFINITE EVIDENCE OF APPENDICITIS. FOLLOW-UP COULD BE OBTAINED IF CLINICALLY INDICATED. Dictated By: Heidi Wahl MD 11/10/20 1353 Signed By: Heidi Wahl MD 11/10/20 1416 TD/TT: 11/10/20 1353Tech: [id number] cc: RADHA; KARLIE3* Tyler Hernandez; Javier Chung MD Advance Directives Advance Directive Response Recorded Date/ Time Advance Directives No November 10, 2020 11:06am Health Care Proxy No November 10, 2020 11:06am Advance Directives No November 06, 2020 1:28pm Health Care Proxy No November 06, 2020 1:28pm Advance Directives No November 03, 2020 2:42pm Health Care Proxy No November 03, 2020 2:42pm Encounters Encounter Location(s) Arrival/Admit Date Discharge/Depart Date Provider(s) Departed Emergency [facility] Emergency Room Department November 03, 2020 2:41pm November 03, 2020 6:53pm null Departed Emergency [facility] Emergency Room Department November 06, 2020 1:25pm November 06, 2020 7:44pm null Departed Emergency [facility] Emergency Room Department November 10, 2020 11:06am November 10, 2020 8:11pm null Assessments No Assessments Information Available Functional Status No Functional Status information available Goals Acute Goals See your doctor this week. R eturn if fevers, difficulty breathing, worsening symptoms, or any problems As discussed please take the medication as prescribed. You can take supplement Tylenol and/or Motrin at home for pain or fever. Please continue to monitor your symptoms at home, if you have any new or worsening symptoms or feel that you need to be reevaluated please return to the emergency department immediately. Otherwise it is extremely important that you follow-up with your primary care doctor within the next 2 days to determine if any further work-up is needed, please follow-up with the appropriate specialties that were discussed during your stay here in the emergency department, if any were discussed. Mental Status No Mental Status Information Available Medical Equipment No Medical Equipment Information available Insurance Providers Guarantor Racquel Khan Address [address] [id number] Contact Info. Home Phone: Payer Policy Id Coverage Id Subscriber's Name Subscriber Id Effective Date Expiration Date [facility] Required [id number] RACQUEL KHAN [id number] Self Pay Self N/A Plan of Treatment Future Tests Future scheduled test information is unavailable Pending Tests Pending diagnostic test information is unavailable Future Visits Future appointment information is unavailable Referrals to Other Providers Reason for Referral Referral Start Date Provider Provider Contact Information Provider Address Md Pcp-None Future Procedures Future procedure information is unavailable Future Medications Future medication information is unavailable Patient Instructions ED Chest Pain Atypical Unkn Cause ED Hematoma Social History Smoking Status Status Date of Observation Ex-smoker (finding) November 10, 2020 11:21a m Observation Status Observation Response Date of Response Lives With Family November 10, 2020 11 :21am Living Situation Private Home November 03, 2020 2 :54pm Assigned Sex Female Vital Signs Vital Reading Result Reference Range Collection Date/Time Height 162.56 cm November 03, 2020 2 :47pm Weight 81.64 kg November 03, 2020 2 :47pm Body Temperature 98.6 [degF] 97.6-99.6 November 03 2:47pm Heart Rate 89 /min 60-90 November 03, 2020 5 :20pm Respiratory rate 20 /min -November 03 5:20pm Oxygen saturation by Pulse oximetry 97 % 95-10 0 November 03, 2020 5:20pm BP Systolic 117 mm[Hg] 90-140 November 03, 2020 5 :20pm BP Diastolic 63 mm[Hg] 60-90 November 03, 2020 5 :20pm BMI (Body Mass Index) 30.9 kg/m2 November 2:47pm Height 162.56 cm November 06, 2020 1 :34pm Weight 86.18 kg November 06, 2020 1 :34pm Body Temperature 98 [degF] 97.6-99.6 November 06 1:34pm Heart Rate 106 /min 60-90 November 06, 2020 1 :34pm Respiratory rate 20 /min -November 06 1:34pm Oxygen saturation by Pulse oximetry 97 % 95-10 0 November 06, 2020 1:34pm BP Systolic 148 mm[Hg] 90-140 November 06, 2020 1 :34pm BP Diastolic 80 mm[Hg] 60-90 November 06, 2020 1 :34pm BMI (Body Mass Index) 32.6 kg/m2 November 1:34pm Height 162.56 cm May 9th, 2021 1 1:13am Weight 86.58 kg November 10, 2020 1 1:13am Body Temperature 98.1 [degF] 97.6-99.6 November 10 11:13am Heart Rate 97 /min 60-90 November 10, 2020 1 1:13am Respiratory rate 20 /min 12-24 November 10 11:13am Oxygen saturation by Pulse oximetry 99 % 95-10 0 November 10, 2020 11:13am BP Systolic 121 mm[Hg] 90-140 November 10, 2020 1 1:13am BP Diastolic 78 mm[Hg] 60-90 November 10, 2020 1 1:13am BMI (Body Mass Index) 32.8 kg/m2 November 11:13am
--- OUTSIDE RECORDS SUMMARY | 2022-11-03 16:51 | XMS_ITS ---
Author Name Nikolay Banks Address [address] [place] [address] Organization [facility] Address [address] [place] [address] Care Team Providers Care Lye Machine Operator Name Role Phone Nikolay Banks Unavailable [phone] PROBLEMS Type Condition ICD9-CM Code PHX10-ZF Code Onset Dates Condition Status SNOMED Code Problem Migraine G43.909 Active 05632198 Problem Anxiety F41.9 Active 61971301 Problem Chronic obstructive lung disease J44.9 Active 22815402 Problem Bipolar 1 disorder F31.9 Active 094240549 Problem Stroke I63.9 Active 639719817 ALLERGIES Substance Reaction Event Type Date Status Quetiapine Unknown Drug Allergy May, Active Sulfa Antibiotics Unknown Drug Allergy May, Act yifan Penicillin Unknown Drug Allergy May, Active ENCOUNTERS Encounter Location Date Diagnosis [facility] [address] [address] May, Migraine G43.909 IMMUNIZATIONS No Known Immunizations SOCIAL HISTORY Qualifiers Date Former Smoker REASON FOR REFERRAL FUNCTIONAL STATUS PLAN OF CARE Activity Details VITAL SIGNS Heart Rate 93 /min 2021-05-23 Weight 191 lbs 2021-05-23 BMI 32.78 kg/m2 2021-05-23 Height 64 in 2021-05-23 Oximetry 98 % 2021-05-23 Blood pressure systolic 118 mm Hg Blood pressure diastolic 72 mm Hg 2021-05 MEDICATIONS Medication Instructions Dosage Frequency Start Date End Date Duration Status Topiramate 25 MG TAKE 1 TABLET BY MOUTH TWICE DAILY 30 Active Ativan 1 MG Orally Once a day 1 tablet at bedtime as needed 24h Active RisperDAL 2 MG Orally Three times a day 1 tablet 8h Active traZODone HCl 150 MG Orally Once a day 1 tablet at bedtime 24h 30 day(s) Active Doxepin HCl 10 MG Orally Once a day 1 capsule at bedtime 24h 30 day(s) Active PROCEDURES No Known procedures RESULTS No Results REASON FOR VISIT 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
--- OUTSIDE RECORDS SUMMARY | 2022-11-03 16:51 | XMS_ITS | Continuity of Care Document ---
Author Name Unknown Address [address] [place] [address] Phone [facility] Address [address] [place] [address] Phone Care Team Providers Care Sand Cutter Name Role Phone MalenaAlan land Emergency Provider [phone] Pcp-None, Primary Care Provider Unavailabl e Allergies, Adverse Reactions, Alerts Allergen Type Severity Reaction Last Updated Verified Status Penicillins Allergy Unknown November 03, 2020 2:47pm Yes Active quetiapine Allergy Unknown November 03, 2020 2:47pm Yes Active Sulfa (Sulfonamide Antibiotics) Allergy Unknown November 03, 2020 2:47pm Yes Active Medications No medication information available. Problems Active Problems Medical Problem Onset Date Status Chest pain Active Procedures Procedure Date Performed Status EKG ED Electrocardiogram November 03, 2020 2:52pm ac tive XR chest 2V November 03, 2020 2:52pm completed CT angio chest with contrast November 03, 2020 4:29p m completed Relevant Diagnostic Tests and/or Laboratory Data Laboratory Results Test Date/Time Result Interpretation Reference Range Result Comment Performing Site White Blood Count November 03, 2020 2:59pm 8.6 X10 3/uL 4.5-11.0 [facility] [address] [facility] [address] Red Blood Count November 03, 2020 2:59pm 3.96 X10 6/uL 3.70-5.00 [facility], [address] [place] [address] Hemoglobin November 03, 2020 2:59pm 11.6 g/dl 11.0-16.0 [facility], [address] [place] [address] Hematocrit November 03, 2020 2:59pm 36.9 % 33.5-45.0 [facility], [address] [place] [address] Mean Corpuscular Volume November 03, 2020 2:59pm 93.2 fl 80.0-100.0 [facility], [address] [place] [address] Mean Corpuscular Hemoglobin November 03, 2020 2:59pm 29.3 pg 27.0-34.0 [facility], [address] [place] [address] Mean Corpuscular Hemoglobin Concent November 03, 2020 2:59pm 31.4 g/dl 31.0-36.0 [facility], [address] [place] [address] Red Cell Distribution Width November 03, 2020 2:59pm 13.2 % 11.5-15.0 [facility], [address] [place] [address] Platelet Count November 03, 2020 2:59pm 191 X10 3/uL 150-400 [facility], [address] [place] [address] Neutrophils (%) (Auto) November 03, 2020 2:59pm Not Reportable [facility], [address] [place] [address] Lymphocytes (%) (Auto) November 03, 2020 2:59pm Not Reportable [facility], [address] [place] [address] Monocytes (%) (Auto) November 03, 2020 2:59pm Not Reportable [facility], [address] [place] [address] Eosinophils (%) (Auto) November 03, 2020 2:59pm Not Reportable [facility], [address] [place] [address] Basophils (%) (Auto) November 03, 2020 2:59pm Not Reportable [facility], [address] [place] [address] Neutrophils # (Auto) November 03, 2020 2:59pm Not Reportable [facility], [address] [place] [address] Lymphocytes # (Auto) November 03, 2020 2:59pm Not Reportable [facility], [address] [place] [address] Basophils # (Auto) November 03, 2020 2:59pm Not Reportable [facility], [address] [place] [address] Neutrophils % (Manual) November 03, 2020 2:59pm 52 % [facility], [address] [place] [address] Lymphocytes % (Manual) November 03, 2020 2:59pm 31 % [facility], [address] [place] [address] Monocytes % (Manual) November 03, 2020 2:59pm 9 % [facility], [address] [place] [address] Eosinophils % (Manual) November 03, 2020 2:59pm 5 % [facility], [address] [place] [address] Basophils % (Manual) November 03, 2020 2:59pm 1 % [facility], [address] [place] [address] Promyelocytes % (Manual) November 03, 2020 2:59pm 2 % 0-0 [facility], [address] [place] [address] Neutrophils # (Manual) November 03, 2020 2:59pm 4.5 X10 3/uL 1.5-7.8 [facility], [address] [place] [address] Lymphocytes # (Manual) November 03, 2020 2:59pm 2.7 X10 3/uL 1.0-4.8 [facility], [address] [place] [address] Monocytes # (Manual) November 03, 2020 2:59pm 0.8 X10 3/uL 0.0-0.8 [facility], [address] [place] [address] Eosinophils # (Manual) November 03, 2020 2:59pm 0.4 X10 3/uL 0.0-0.5 [facility], [address] [place] [address] Basophils # (Manual) November 03, 2020 2:59pm 0.1 X10 3/uL 0.0-0.2 [facility], [address] [place] [address] Platelet Estimate November 03, 2020 2:59pm Adequate [facility], [address] [place] [address] Platelet Morphology Comment November 03, 2020 2:59pm Normal morphology [facility], [address] [place] [address] Polychromasia November 03, 2020 2:59pm Slight [facility], [address] [place] [address] Microcytosis November 03, 2020 2:59pm Moderate [facility], [address] [place] [address] Ovalocytes November 03, 2020 2:59pm Slight [facility], [address] [place] [address] Nucleated Red Blood Cells % November 03, 2020 2:59pm 0.0 /100 WBC 0.0-0.0 [facility], [address] [place] [address] Sodium Level November 03, 2020 2:59pm 139 mmol/L 137-146 [facility], [address] [place] [address] Potassium Level November 03, 2020 2:59pm 3.8 mmol/L 3.5-5.3 [facility], [address] [place] [address] Chloride Level November 03, 2020 2:59pm 105 mmol/L 98-107 [facility], [address] [place] [address] Carbon Dioxide Level November 03, 2020 2:59pm 21 mmol/L 23-32 [facility], [address] [place] [address] Anion Gap November 03, 2020 2:59pm 13 mmol/L 5-15 [facility], [address] [place] [address] Blood Urea Nitrogen November 03, 2020 2:59pm 20 mg/dl - [facility], [address] [place] [address] Creatinine November 03, 2020 2:59pm 0.8 mg/dL 0.5-1.1 [facility], [address] [place] [address] Estimated Creatinine Clearance November 03, 2020 2:59pm 76.3 ml/min This value is calculated by Cockcroft Gault Equation using ideal body weight. This result is dependent on an accurate patient height and weight which is obtained from patients medical record. HaileeofNohemy horton.W. [facility]. [facility]. Prediction of creatinine clearance from serum creatinine. Nephron. 1976. 16(1):31-41 . [facility], [address] [place] [address] Estimated GFR () November 03, 2020 2:59pm 92 >60 [facility], [address] [place] [address] Estimated GFR (Non- November 03, 2020 2:59pm 80 >60 [facility], [address] [place] [address] BUN/Creatinine Ratio November 03, 2020 2:59pm 25.0 10.0-20.0 [facility], [address] [place] [address] Glucose Level November 03, 2020 2:59pm 125 mg/dL 70-100 [facility], [address] [facility] [address] Calcium Level November 03, 2020 2:59pm 8.8 mg/dl 8.6-10.3 [facility], [address] [place] [address] Troponin T November 03, 2020 2:59pm < 0.01 ng/ml [facility], [address] [facility] [address] Diagnostic Imaging Reports Report Dictated Date/Time Dictated By Status Radiology Report November 03, 2020 4:18pm Bhumi Kelley MD [facility] [address] [place] [id number] Patient Name: Racquel Khan Medical Record#: [id number] Address: [address] [place] [address] City/State/Zip: [place] [address]: Desean Guy MD Insurance: [employer] [facility] Re quired /Age/Sex: 1960/60/F Self Pay Admit/Reg Date: 11/03/[address]: Alan Guy MD Location: ED.HM/ PCP: Md MARTHA Ding Date of Service: 11/03/20 Order (s): XR chest 2V CPT Code: 59660 Report Number: [id number] Reason for Exam: Chest Pain Patient name: [...] 11/03/201617 TD/TT: 11/03/201617Tech: [id number] cc: MCEST; PCPNO* Pcp-Md Jc ; Alan Guy MD Radiology Report November 03, 2020 5:05pm Sheldon Burnette MD completed [facility] at [address] [address] Patient Name: Racquel Khan Medical Record#: [id number] Address: [address] [place] [address] City/State/Zip: [place] [address]: Desean Guy MD Insurance: [facility] Re quired /Age/Sex: 1960/60/F Self Pay Admit/Reg Date: 11/03/[address]: Alan Guy MD Location: ED.HM/ PCP: PcpMd MARTHA Huynh Date of Service: 11/03/20 Order (s): CT angio chest with contrast CPT Code: 48320 Report Number: [id number] Reason for Exam: chest pain,shortness of breath CT PULMONARY ANGIOGRAPHY (98601) Technique: Noncontrast day care home mother image and axial localizer images performed prior [...] Signed By: Sheldon Orlando MD 11/03/201707 TD/TT: 11/03/201704Tech: [id number] cc: MCEST; PCPNO* Pcp-Md Jc ; Alan Guy MD Advance Directives Advance Directive Response Recorded Date/ Time Advance Directives No November 03, 2020 2:42pm Health Care Proxy No November 03, 2020 2:42pm Encounters Encounter Location(s) Arrival/Admit Date Discharge/Depart Date Provider(s) Departed Emergency [facility]- Emergency Room Department November 03, 2020 2:41pm November 03, 2020 6:53pm null Assessments No Assessments Information Available Functional Status No Functional Status information available Goals Acute Goals See your doctor this week. R eturn if fevers, difficulty breathing, worsening symptoms, or any problems Mental Status No Mental Status Information Available Medical Equipment No Medical Equipment Information available Insurance Providers Guarantor Racquel Khan Address [address] [facility] [address] [facility] [address] Contact Info. Home Phone: Payer Policy Id Coverage Id Subscriber's Name Subscriber Id Effective Date Expiration Date [facility] PCC Required [id number] RACQUEL KHAN [id number] Self Pay Self N/A Plan of Treatment [...] Instructions ED Chest Pain Atypical Unkn Cause Social History Smoking Status Status Date of Observation Ex-smoker (finding) November 03, 2020 2:54pm Observation Status Observation Response Date of Response Lives With Children November 03, 2020 2: 54pm Assigned Sex Female Vital Signs Vital Reading Result Reference Range Collection Date/Time Height 162.56 cm November 03, 2020 2 :47pm Weight 81.64 kg November 03, 2020 2 :47pm Body Temperature 98.6 [degF] 97.6-99.6 November 03 2:47pm Heart Rate 89 /min 60-90 November 03, 2020 5 :20pm Respiratory rate 20 /min 12-24 November 03 5:20pm Oxygen saturation by Pulse oximetry 97 % 95-10 0 November 03, 2020 5:20pm BP Systolic 117 mm[Hg] 90-140 November 03, 2020 5 :20pm BP Diastolic 63 mm[Hg] 60-90 November 03, 2020 5 :20pm BMI (Body Mass Index) 30.9 kg/m2 November 2:47pm
--- OUTSIDE RECORDS SUMMARY | 2022-11-03 16:51 | XMS_ITS | Continuity of Care Document ---
Author Name Unknown Address [address] [place] [address] Phone [facility] Address [address] [place] [address] Phone Care Team Providers Care Programmer Developer Name Role Phone Alan Guy Emergency Provider [phone] Pcp-Md Jc Primary Care Provider Ulisses Peralta Emergency Provider Allergies, Adverse Reactions, Alerts Allergen Type Severity Reaction Last Updated Verified Status Penicillins Allergy Unknown November 06, 2020 2:37pm Yes Active quetiapine Allergy Unknown November 06, 2020 2:37pm Yes Active Sulfa (Sulfonamide Antibiotics) Allergy Unknown November 06, 2020 2:37pm Yes Active Medications Medication Status Dose Units Route Directions Qty Days St art Date End Date Instructions Ondansetron Hcl (Zofran) 4 MG Tablet Active 4 MG PO EVERY 8 HOURS 8 November 06, 2020 4:46pm Problems Active Problems Medical Problem Onset Date Status Abdominal pain Active Chest pain Active Procedures Procedure Date Performed Status CT abdomen pelvis w con November 06, 2020 2:22pm com pleted EKG ED Electrocardiogram November 06, 2020 2:23pm ac tive EKG ED Electrocardiogram November 03, 2020 2:52pm co mpleted XR chest 2V November 03, 2020 2:52pm completed CT angio chest with contrast November 03, 2020 4:29p m completed Relevant Diagnostic Tests and/or Laboratory Data Laboratory Results Test Date/Time Result Interpretation Reference Range Result Comment Performing Site White Blood Count November 06, 2020 2:45pm 14.2 X10 3/uL 4.5-11.0 [facility], [address] [place] [address] White Blood Count November 03, 2020 2:59pm 8.6 X10 3/uL 4.5-11.0 [facility], [address] [place] [address] Red Blood Count November 06, 2020 2:45pm 3.88 X10 6/uL 3.70-5.00 [facility], [address] [place] [address] Red Blood Count November 03, 2020 2:59pm 3.96 X10 6/uL 3.70-5.00 [facility], [address] [place] [address] Hemoglobin November 06, 2020 2:45pm 11.4 g/dl 11.0-16.0 [facility], [address] [place] [address] Hemoglobin November 03, 2020 2:59pm 11.6 g/dl 11.0-16.0 [facility], [address] [place] [address] Hematocrit November 06, 2020 2:45pm 35.2 % 33.5-45.0 [facility], [address] [place] [address] Hematocrit November 03, 2020 2:59pm 36.9 % 33.5-45.0 [facility], [address] [place] [address] Mean Corpuscular Volume November 06, 2020 2:45pm 90.7 fl 80.0-100.0 [facility], [address] [place] [address] Mean Corpuscular Volume November 03, 2020 2:59pm 93.2 fl 80.0-100.0 [facility], [address] [place] [address] Mean Corpuscular Hemoglobin November 06, 2020 2:45pm 29.4 pg 27.0-34.0 [facility], [address] [place] [address] Mean Corpuscular Hemoglobin November 03, 2020 2:59pm 29.3 pg 27.0-34.0 [facility], [address] [place] [address] Mean Corpuscular Hemoglobin Concent November 06, 2020 2:45pm 32.4 g/dl 31.0-36.0 [facility], [address] [place] [address] Mean Corpuscular Hemoglobin Concent November 03, 2020 2:59pm 31.4 g/dl 31.0-36.0 [facility], [address] [place] [address] Red Cell Distribution Width November 06, 2020 2:45pm 13.2 % 11.5-15.0 [facility], [address] [place] [address] Red Cell Distribution Width November 03, 2020 2:59pm 13.2 % 11.5-15.0 [facility], [address] [place] [address] Platelet Count November 06, 2020 2:45pm 191 X10 3/uL 150-400 [facility], [address] [place] [address] Platelet Count November 03, 2020 2:59pm 191 X10 3/uL 150-400 [facility], [address] [place] [address] Immature Granulocyte % (Auto) November 06, 2020 2:45pm 1.7 % [facility], [address] [place] [address] Neutrophils (%) (Auto) November 06, 2020 2:45pm 80.0 % [facility], [address] [place] [address] Neutrophils (%) (Auto) November 03, 2020 2:59pm Not Reportable [facility], [address] [place] [address] Lymphocytes (%) (Auto) November 06, 2020 2:45pm 11.7 % [facility], [address] [place] [address] Lymphocytes (%) (Auto) November 03, 2020 2:59pm Not Reportable [facility], [address] [place] [address] Monocytes (%) (Auto) November 06, 2020 2:45pm 5.4 % [facility], [address] [place] [address] Monocytes (%) (Auto) November 03, 2020 2:59pm Not Reportable [facility], [address] [place] [address] Eosinophils (%) (Auto) November 06, 2020 2:45pm 0.9 % [facility], [address] [place] [address] Eosinophils (%) (Auto) November 03, 2020 2:59pm Not Reportable [facility], [address] [place] [address] Basophils (%) (Auto) November 06, 2020 2:45pm 0.3 % [facility], [address] [place] [address] Basophils (%) (Auto) November 03, 2020 2:59pm Not Reportable [facility], [address] [place] [address] Immature Granulocyte # (Auto) November 06, 2020 2:45pm 0.24 X10 3/uL 0.00-0.09 [facility], [address] [place] [address] Neutrophils # (Auto) November 06, 2020 2:45pm 11.4 X10 3/uL 1.5-7.8 [facility], [address] [place] [address] Neutrophils # (Auto) November 03, 2020 2:59pm Not Reportable [facility], [address] [place] [address] Lymphocytes # (Auto) November 06, 2020 2:45pm 1.7 X10 3/uL 1.0-4.8 [facility], [address] [place] [address] Lymphocytes # (Auto) November 03, 2020 2:59pm Not Reportable [facility], [address] [place] [address] Monocytes # (Auto) November 06, 2020 2:45pm 0.8 X10 3/uL 0.0-0.8 [facility], [address] [place] [address] Eosinophils # (Auto) November 06, 2020 2:45pm 0.1 X10 3/uL 0.0-0.5 [facility], [address] [place] [address] Basophils # (Auto) November 06, 2020 2:45pm 0.0 X10 3/uL 0.0-0.2 [facility], [address] [place] [address] Basophils # (Auto) November 03, 2020 2:59pm Not Reportable [facility], [address] [place] [address] Neutrophils % (Manual) November 03, 2020 2:59pm 52 % [facility], [address] [place] [address] Lymphocytes % (Manual) November 03, 2020 2:59pm 31 % [facility], [address] [place] [address] Monocytes % (Manual) November 03, 2020 2:59pm 9 % [facility], [address] [place] [address] Eosinophils % (Manual) November 03, 2020 2:59pm 5 % [facility], [address] [place] [address] Basophils % (Manual) November 03, 2020 2:59pm 1 % [facility], [address] [place] [address] Promyelocytes % (Manual) November 03, 2020 2:59pm 2 % 0-0 [facility], [address] [place] [address] Neutrophils # (Manual) November 03, 2020 2:59pm 4.5 X10 3/uL 1.5-7.8 [facility], [address] [place] [address] Lymphocytes # (Manual) November 03, 2020 2:59pm 2.7 X10 3/uL 1.0-4.8 [facility], [address] [place] [address] Monocytes # (Manual) November 03, 2020 2:59pm 0.8 X10 3/uL 0.0-0.8 [facility], [address] [place] [address] Eosinophils # (Manual) November 03, 2020 2:59pm 0.4 X10 3/uL 0.0-0.5 [facility], [address] [place] [address] Basophils # (Manual) November 03, 2020 2:59pm 0.1 X10 3/uL 0.0-0.2 [facility], [address] [place] [address] Platelet Estimate November 03, 2020 2:59pm Adequate [facility], [address] [place] [address] Platelet Morphology Comment November 03, 2020 2:59pm Normal morphology [facility], [address] [place] [address] Polychromasia November 03, 2020 2:59pm Slight [facility], [address] [place] [address] Microcytosis November 03, 2020 2:59pm Moderate [facility], [address] [place] [address] Ovalocytes November 03, 2020 2:59pm Slight [facility], [address] [place] [address] Nucleated Red Blood Cells % November 06, 2020 2:45pm 0.0 /100 WBC 0.0-0.0 [facility], [address] [place] [address] Nucleated Red Blood Cells % November 03, 2020 2:59pm 0.0 /100 WBC 0.0-0.0 [facility], [address] [place] [address] Urine Color November 06, 2020 4:10pm Yellow Yellow [facility], [address] [place] [address] Urine Clarity November 06, 2020 4:10pm Clear Clear [facility], [address] [place] [address] Urine pH November 06, 2020 4:10pm 7.0 5.0-8.0 [facility], [address] [place] [address] Urine Specific [place] November 06, 2020 4:10pm 1.027 1.003-1.03 0 [facility], [address] [place] [address] Urine Blood November 06, 2020 4:10pm Negative mg/dl Negative [facility], [address] [place] [address] Urine Protein November 06, 2020 4:10pm Negative mg/dl Negative [facility], [address] [place] [address] Urine Glucose (UA) November 06, 2020 4:10pm Negative mg/dl Negative [facility], [address] [place] [address] Urine Ketones November 06, 2020 4:10pm Negative mg/dl Negative [facility], [address] [place] [address] Urine Nitrate November 06, 2020 4:10pm Negative Negative [facility], [address] [place] [address] Urine Bilirubin November 06, 2020 4:10pm Negative mg/dl Negative [facility], [address] [place] [address] Urine Urobilinogen November 06, 2020 4:10pm Normal mg/dl Normal [facility], [address] [place] [address] Urine Leukocyte Esterase November 06, 2020 4:10pm Negative Negative [facility], [address] [place] [address] Sodium Level November 06, 2020 1:55pm 135 mmol/L 137-146 [facility], [address] [place] [address] Sodium Level November 03, 2020 2:59pm 139 mmol/L 137-146 [facility], [address] [place] [address] Potassium Level November 06, 2020 1:55pm 5.2 mmol/L 3.5-5.3 Gross hemolysis, please redraw specimen [facility], [address] [place] [address] Potassium Level November 03, 2020 2:59pm 3.8 mmol/L 3.5-5.3 [facility], [address] [place] [address] Chloride Level November 06, 2020 1:55pm 105 mmol/L 98-107 [facility], [address] [place] [address] Chloride Level November 03, 2020 2:59pm 105 mmol/L 98-107 [facility], [address] [place] [address] Carbon Dioxide Level November 06, 2020 1:55pm 19 mmol/L 23-32 [facility], [address] [place] [address] Carbon Dioxide Level November 03, 2020 2:59pm 21 mmol/L 23-32 [facility], [address] [place] [address] Anion Gap November 06, 2020 1:55pm 11 mmol/L 5-15 [facility], [address] [place] [address] Anion Gap November 03, 2020 2:59pm 13 mmol/L 11-16 [facility], [address] [place] [address] Blood Urea Nitrogen November 06, 2020 1:55pm 22 mg/dl 11-26 [facility], [address] [address] Blood Urea Nitrogen November 03, 2020 2:59pm 20 mg/dl 11-26 [facility], [address] [place] [address] Creatinine November 06, 2020 1:55pm 0.9 mg/dL 0.5-1.1 [facility], [address] [place] [address] Creatinine November 03, 2020 2:59pm 0.8 mg/dL 0.5-1.1 [facility], [address] [place] [address] Estimated Creatinine Clearance November 06, 2020 1:55pm 69.7 ml/min This value is calculated by Cockcroft Gault Equation using ideal body weight. This result is dependent on an accurate patient height and weight which is obtained from patients medical record. Cockcroft, D.W. and M.H. Gault. Prediction of creatinine clearance from serum creatinine. Nephron. 1975. 16(1):31-41 . [facility], [address] [place] [address] Estimated Creatinine Clearance November 03, 2020 2:59pm 76.3 ml/min This value is calculated by Cockcroft Gault Equation using ideal body weight. This result is dependent on an accurate patient height and weight which is obtained from patients medical record. Cockcroft, D.W. and M.H. Gault. Prediction of creatinine clearance from serum creatinine. Nephron. 1975. 16(1):31-41 . [facility], [address] [place] [address] Estimated GFR () November 06, 2020 1:55pm 80 >60 [facility], [address] [place] [address] Estimated GFR () November 03, 2020 2:59pm 92 >60 [facility], [address] [place] [address] Estimated GFR (Non- November 06, 2020 1:55pm 69 >60 [facility], [address] [place] [address] Estimated GFR (Non- November 03, 2020 2:59pm 80 >60 [facility], [address] [place] [address] BUN/Creatinine Ratio November 06, 2020 1:55pm 24.4 10.0-20.0 [facility], [address] [place] [address] BUN/Creatinine Ratio November 03, 2020 2:59pm 25.0 10.0-20.0 [facility], [address] [place] [address] Glucose Level November 06, 2020 1:55pm 95 mg/dL 70-100 [facility], [address] [place] [address] Glucose Level November 03, 2020 2:59pm 125 mg/dL 70-100 [facility], [address] [place] [address] Calcium Level November 06, 2020 1:55pm 8.7 mg/dl 8.6-10.3 [facility], [address] [place] [address] Calcium Level November 03, 2020 2:59pm 8.8 mg/dl 8.6-10.3 [facility], [address] [place] [address] Total Bilirubin November 06, 2020 1:55pm 0.3 mg/dl <1.1 [facility], [address] [place] [address] Aspartate Amino Transf (AST/SGOT) November 06, 2020 1:55pm 29 U/L 15-41 Specimen hemolyzed, results affected, evaluate with caution. [facility], [address] [place] [address] Alanine Aminotransferase (ALT/SGPT) November 06, 2020 1:55pm 15 U/L 14-54 Gross hemolysis, evaluate with caution [facility], [address] [place] [address] Troponin T November 06, 2020 1:55pm < 0.01 ng/ml [facility], [address] [place] [address] Troponin T November 03, 2020 2:59pm < 0.01 ng/ml [facility], [address] [place] [address] Total Protein November 06, 2020 1:55pm 6.3 g/dL 6.4-8.3 [facility], [address] [place] [address] Albumin November 06, 2020 1:55pm 3.6 g/dl 4.0-5.0 [facility], [address] [place] [address] Albumin/Globulin Ratio November 06, 2020 1:55pm 1.3 1.0-2.6 [facility], [address] [place] [address] Alkaline Phosphatase November 06, 2020 1:55pm 77 U/L 35-104 Gross hemolysis, evaluate with caution [facility], [address] [place] [address] Lipase November 06, 2020 1:55pm 40 U/L 13-60 [facility], [address] [place] [address] Diagnostic Imaging Reports Report Dictated Date/Time Dictated By Status Radiology Report November 03, 2020 4:18pm Bhumi Kelley MD completed [facility] [address] [place] [address] Patient Name: Racquel Khan Medical Record#: [id number] Address: [address] [place] [address] City/State/Zip: [place] [address]: Desean Guy MD Insurance: [facility] PCC Re quired /Age/Sex: 1960 60/F Self Pay Admit/Reg Date: 11/03/[address]: Alan Guy MD Location: ED.HM/ PCP: PcpMd MARTHA Huynh Date of Service: 11/03/20 Order (s): XR chest 2V CPT Code: 46060 Report Number: [id number] Reason for Exam: Chest Pain Patient name: [...] 11/03/201617 TD/TT: 11/03/201617Tech: [id number] cc: MCEST; PCPNO* Md Toña ; Alan Guy MD Radiology Report November 03, 2020 5:05pm Sheldon Burnette MD [facility] at [address] [address] Patient Name: Racquel Khan Medical Record#: [id number] Address: [address] [place] [address] City/State/Zip: [place] [address]: Desean Guy MD Insurance: [facility] PCC Re quired /Age/Sex: 1960/60/F Self Pay Admit/Reg Date: 11/03/[address]: Alan Guy MD Location: ED.HM/ PCP: Md MARTHA Ding Date of Service: 11/03/20 Order (s): CT angio chest with contrast CPT Code: 72049 Report Number: [id number] Reason for Exam: chest pain,shortness of breath CT PULMONARY ANGIOGRAPHY (54430) Technique: Noncontrast aircraft launch and recovery technician image and axial localizer images performed prior [...] 11/03/201707 TD/TT: 11/03/201704Tech: [id number] cc: MCEST; PCPNO* Md Toña ; Alan Guy MD Radiology Report November 06, 2020 3:30pm César Dawkins MD completed [facility] at [address] [address] Patient Name: Racquel Khan Medical Record#: [id number] Address: [address] [place] [address] City/State/Zip: [place] [address]: Ulisses Phillips MD Insurance: [facility] PCC Re quired /Age/Sex: 1960/60/F Self Pay Admit/Reg Date: 11/06/[address]: MANUEL Zheng Location: ED.HM/ PCP: PcpMd MARTHA Huynh Date of Service: 11/06/20 Order (s): CT abdomen pelvis w con CPT Code: 47719 Report Number: [id number] Reason for Exam: abd pain, nausea Patient [...] PANCREATITIS Dictated By: César Dawkins MD 11/06/20 1530 Signed By: César Dawkins MD 11/06/20 1533 TD/TT: 11/06/20 1530Tech: [id number] cc: GIGI; MELISSA; JANNETH08* Ulisses Phillips MD; MANUEL Zheng; Pcp-Md Jc Advance Directives Advance Directive Response Recorded Date/ Time Advance Directives No November 06, 2020 1:28pm Health Care Proxy No November 06, 2020 1:28pm Advance Directives No November 03, 2020 2:42pm Health Care Proxy No November 03, 2020 2:42pm Encounters Encounter Location(s) Arrival/Admit Date Discharge/Depart Date Provider(s) Departed Emergency [facility] Emergency Room Department November 03, 2020 2:41pm November 03, 2020 6:53pm null Departed Emergency [facility] Emergency Room Department November 06, 2020 1:25pm November 06, 2020 7:44pm null Assessments No Assessments Information Available Functional [...] Insurance Providers Guarantor Racquel Khan Address [address] [address] Contact Info. Home Phone: Payer Policy Id Coverage Id Subscriber's Name Subscriber Id Effective Date Expiration Date [facility] Required [id number] RACQUEL KHAN [id number] Self Pay Self N/A Plan of Treatment [...] History Smoking Status Status Date of Observation Never smoked tobacco (finding) November 06, 2020 2:22pm Observation Status Observation Response Date of Response Lives With Children November 06, 2020 2: 22pm Living Situation Private Home November 03, 2020 [...] 2020 1 :34pm Respiratory rate 20 /min 12-November 06 1:34pm Oxygen saturation by Pulse oximetry 97 % 95-10 0 November 06, 2020 1:34pm BP Systolic 148 mm[Hg] 90-140 November 06, 2020 1 :34pm BP Diastolic 80 mm[Hg] 60-90 November 06, 2020 1 :34pm BMI (Body Mass Index) 32.6 kg/m2 November 1:34pm
--- OUTSIDE RECORDS SUMMARY | 2022-11-03 16:51 | XMS_ITS | Continuity of Care Document ---
Author Name Unknown Address [address] [place] [address] Phone [facility] Address [address] [place] [address] Phone Care Team Providers Care Emergency Management System Director Name Role Phone MD Luis Caro Emergency Provider Unavailabl e Pcp-Jc, MD Pearce Primary Care Provider Unavailabl e Chief Complaint and Reason for Visit Chief Complaint CVA Allergies, Adverse Reactions, Alerts Allergen Type Severity Reaction Last Updated Verified Status acetaminophen Allergy Unknown Unknown November 11 5:23pm Yes Active butalbital Allergy Unknown Unknown November 11, 2021 5:23pm Yes Active caffeine Allergy Unknown Unknown November 11, 2021 5:23pm Yes Active pork derived (porcine) Allergy Unknown Unknown 2021 5:23pm Yes Active lactose Allergy Unknown November 11, 2021 5:23pm Yes Active lamotrigine Allergy Unknown November 11 5:23pm Yes Active Penicillins Allergy Unknown November 11 5:23pm Yes Active quetiapine Allergy Unknown November 11, 2021 5:23pm Yes Active Sulfa (Sulfonamide Antibiotics) Allergy Unknown November 11, 2021 5:23pm Yes Active Social History Smoking Status Status Start Date End Date Date of Observa tion Tobacco smoking consumption unknown (finding) November 11, 2021 4:52p m Observation Status Observation Response Date of Response Lives With Family November 10, 2020 11 :21am Additional Data Assigned Sex Female Problems Active Problems Medical Problem Onset Date Status Headache Active Cervical radiculopathy at C6 Act yifan Inactive/Resolved Problems Medical Problem Onset Date Status Nontraumatic hematoma of skin and subcutaneous t issue Resolved Abdominal pain Resolved Chest pain Resolved Medications Medication Status Dose Units Route Directions Qty Days St art Date End Date Instructions Ondansetron Hcl (Zofran) 4 MG tablet Active 4 MG PO EVERY 8 HOURS 8 November 06, 2020 4:46pm Tramadol Active 50 MG PO EVERY 6 HOURS November 10, 2020 2:39pm Partial fill available on patient request. Procedures Procedure Date Performed Status CT cervical spine wo con November 11, 2021 5:01pm c ompleted CT angio head stroke November 11, 2021 5:04pm compl eted CT head stroke wo con November 11, 2021 5:04pm comp leted EKG ED Electrocardiogram November 11, 2021 5:02pm a ctive Relevant Diagnostic Tests and/or Laboratory Data Laboratory Results Test Date/Time Result Interpretation Reference Range Result Comment Performing Site White Blood Count November 11, 2021 5:58pm 4.7 X10 3/uL 4.5-11.0 [facility] [address] [facility] [address] Red Blood Count November 11, 2021 5:58pm 3.66 X10 6/uL 3.70-5.00 [facility] [address] [facility] [address] Hemoglobin November 11, 2021 5:58pm 11.0 g/dl 11.0-16.0 [facility] [address] [facility] [address] Hematocrit November 11, 2021 5:58pm 33.3 % 33.5-45.0 [facility] [address] [facility] [address] Mean Corpuscular Volume November 11, 2021 5:58pm 91.0 fl 80.0-100.0 [facility] [address] [facility] [address] Mean Corpuscular Hemoglobin November 11, 2021 5:58pm 30.1 pg 27.0-34.0 [facility] [address] [facility] [address] Mean Corpuscular Hemoglobin Concent November 11, 2021 5:58pm 33.0 g/dl 31.0-36.0 [facility] [address] [facility] [address] Red Cell Distribution Width November 11, 2021 5:58pm 13.3 % 11.5-15.0 [facility] [address] [facility] [address] Platelet Count November 11, 2021 5:58pm 205 X10 3/uL 150-400 [facility] [address] [facility] [address] Immature Granulocyte % (Auto) November 11, 2021 5:58pm 0.2 % [facility] [address] [facility] [address] Neutrophils (%) (Auto) November 11, 2021 5:58pm 29.7 % [facility] [address] [facility] [place] [address] Lymphocytes (%) (Auto) November 11, 2021 5:58pm 54.7 % [facility] [address] [facility] [address] Monocytes (%) (Auto) November 11, 2021 5:58pm 8.8 % [facility] [address] [facility] [address] Eosinophils (%) (Auto) November 11, 2021 5:58pm 6.0 % [facility] [address] [facility] [address] Basophils (%) (Auto) November 11, 2021 5:58pm 0.6 % [facility] [address] [facility] [address] Immature Granulocyte # (Auto) November 11, 2021 5:58pm 0.01 X10 3/uL 0.00-0.09 [facility] [address] [facility] [address] Neutrophils # (Auto) November 11, 2021 5:58pm 1.4 X10 3/uL 1.5-7.[address] [address] Lymphocytes # (Auto) November 11, 2021 5:58pm 2.6 X10 3/uL 1.0-4.[address] [address] Monocytes # (Auto) November 11, 2021 5:58pm 0.4 X10 3/uL 0.0-0.8 [facility] [address] [facility] [address] Eosinophils # (Auto) November 11, 2021 5:58pm 0.3 X10 3/uL 0.0-0.5 [facility] [address] [facility] [address] Basophils # (Auto) November 11, 2021 5:58pm 0.0 X10 3/uL 0.0-0.[address] [address] Erythrocyte Sedimentation Rate November 11, 2021 5:58pm 11 mm/hr 0-[address] [address] Nucleated Red Blood Cells % November 11, 2021 5:58pm 0.0 /100 WBC 0.0-0.0 [facility] [address] [facility] [address] Prothrombin Time November 11, 2021 7:15pm 9.9 Seconds 9.3-12.1 *Note New Reference Range [facility] [address] [facility] [address] Prothromb Time International Ratio November 11, 2021 7:15pm 1.0 0.9-1.2 *Note New Reference RangeReference Interval is for non-anticoagulat ed patients.Suggest ed INR Therapeutic Range for Vitamin K antogonist therapy:LEVELS OF THERAPY INDICATIONS TARGET INR RANGEStandard Dose Venous Thrombosis, 2.0 - 3.0 Atrial Fibrillation, Pulmonary Embolism. High Dose Valvular Heart Disease, 2.5 - 3.5 Mechanical Heart, Intracardiac Thrombosis. [facility] [address] [facility] [address] Activated Partial Thromboplast Time November 11, 2021 7:15pm 23.3 Seconds 23.9-32.8 *Note New Reference Range [facility] [address] [facility] [address] Urine Color November 11, 2021 7:40pm Yellow Yellow [facility] [address] [facility] [address] Urine Clarity November 11, 2021 7:40pm Clear Clear [facility] [address] [facility] [address] Urine pH November 11, 2021 7:40pm 8.0 5.0-8.0 [facility] [address] [facility] [address] Urine Specific [place] November 11, 2021 7:40pm 1.015 1.003-1.03 0 [facility] [address] [facility] [address] Urine Blood November 11, 2021 7:40pm Negative mg/dl Negative [facility] [address] [facility] [address] Urine Protein November 11, 2021 7:40pm Negative mg/dl Negative [facility] [address] [facility] [address] Urine Glucose (UA) November 11, 2021 7:40pm Negative mg/dl Negative [facility] [address] [facility] [address] Urine Ketones November 11, 2021 7:40pm Negative mg/dl Negative [facility] [address] [facility] [address] Urine Nitrate November 11, 2021 7:40pm Negative Negative [facility] [address] [facility] [address] Urine Bilirubin November 11, 2021 7:40pm Negative mg/dl Negative [facility] [address] [facility] [address] Urine Urobilinogen November 11, 2021 7:40pm Normal mg/dl Normal [facility] [address] [facility] [address] Urine Leukocyte Esterase November 11, 2021 7:40pm Negative Negative [facility] [address] [facility] [address] Sodium Level November 11, 2021 5:58pm 140 mmol/L 137-146 [facility] [address] [facility] [address] Potassium Level November 11, 2021 5:58pm 4.2 mmol/L 3.5-5.3 [facility] [address] [facility] [address] Chloride Level November 11, 2021 5:58pm 102 mmol/L 98-107 [facility] [address] [facility] [address] Carbon Dioxide Level November 11, 2021 5:58pm 30 mmol/L 23-32 [facility] [address] [facility] [address] Anion Gap November 11, 2021 5:58pm 8 mmol/L 5-15 [facility] [address] [facility] [address] Blood Urea Nitrogen November 11, 2021 5:58pm 15 mg/dl 5-25 [facility] [address] [facility] [address] Creatinine November 11, 2021 5:58pm 1.0 mg/dL 0.5-1.1 [facility] [address] [facility] [address] Estimated Creatinine Clearance November 11, 2021 5:58pm 63.6 ml/min This value is calculated by Cockcroft Gault Equation using ideal body weight. This result is dependent on an accurate patient height and weight which is obtained from patients medical record. Cockcroft, D.W. and M.H. Gault. Prediction of creatinine clearance from serum creatinine. Nephron. 1976. 16(1):31-41. [facility] [address] [facility] [address] Estimated GFR () November 11, 2021 5:58pm 70 >60 [facility] [address] [facility] [address] Estimated GFR (Non- November 11, 2021 5:58pm 60 >[address] [address] BUN/Creatinine Ratio November 11, 2021 5:58pm 15.0 10.0-20.[address] [address] Glucose Level November 11, 2021 5:58pm 83 mg/dL 70-[address] [address] Calcium Level November 11, 2021 5:58pm 9.7 mg/dl 8.6-10.[address] [address] Total Bilirubin November 11, 2021 5:58pm 0.3 mg/dl <1.[address] [address] Aspartate Amino Transf (AST/SGOT) November 11, 2021 5:58pm 13 U/L 15-[address] [address] Alanine Aminotransfera se (ALT/SGPT) November 11, 2021 5:58pm 11 U/L 14-[address] [address] Troponin T High Sensitivity November 11, 2021 5:58pm 7 ng/L <8 Normal range: Females <9 ng/L Males <14 ng/L Values greater than or equal to 52 ng/L indicates acute myocardial injury/infarctio n Values between '10 and 51 ng/L' (for females) or '15 and 51 ng/L' (for males) require clinical correlation and is not diagnostic of acute myocardial injury.Consider repeat at 1 and 3 hours.A dynamic increase of ? greater than 5 ng/L? at 1 hour or 3 hours indicates of acute myocardial injury/infarctio n.For a patient with an estimated GFR of less than 30 mL/min/1.73 m2 or receiving dialysis, a dynamic increase of greater than 20% at 3 hours indicates acute myocardial injury.A value of less than 9 ng/L (in females) or less than 14 ng/L (in males) with a dynamic change of less than 3 ng/L, greater than 3 hours after symptom onset, generally rules out acute myocardial injury/infarctio n.Refer to Chest Pain order sets for additional clinical decision support (using the HEART score for the ED or the REESE score for the inpatient setting). [address] [place] [address] Total Protein November 11, 2021 5:58pm 6.7 g/dL 6.4-8.3 [facility] [address] [facility] [address] Albumin November 11, 2021 5:58pm 4.6 g/dl 4.0-5.0 [facility] [address] [facility] [address] Albumin/Globul in Ratio November 11, 2021 5:58pm 2.2 1.0-2.[address] [address] Alkaline Phosphatase November 11, 2021 5:58pm 73 U/L 35-104 [facility] [address] [facility] [address] Urine Amphetamines Screen November 11, 2021 7:40pm Negative Negative Amphetamines Cutoff level 1000 ng/mL. [address] [address] Urine Methadone Screen November 11, 2021 7:40pm Negative Negative Methadone Cutoff level 300 ng/mL [address] [address] Urine Oxycodone Screen November 11, 2021 7:40pm Negative Negative Oxycontin/Oxycod one Cutoff level 100 ng/mL [address] [address] Urine Buprenorphine Screen November 11, 2021 7:40pm Negative Negative Buprenorphine Cutoff level 5 ng/mL [address] [address] Urine Opiates Screen November 11, 2021 7:40pm Negative Negative Opiate Cutoff level 300 ng/mLOxycontin/O xycodone is not detected below the threshold of20,000 ng/mL [address] [address] Urine Fentanyl Screen November 11, 2021 7:40pm Negative Negative Fentanyl Cutoff level 2.0 ng/mL [address] [address] Urine Benzodiazepine s Screen November 11, 2021 7:40pm Negative Negative Please note that the current method for benzodiazepines may be less sensitive to lorazapam detection than previously. If this result is negative and you are concerned about a false negative result for lorazepam, additional testing is possible. Please contact the laboratory.Benzo diazepine Cutoff level 200 ng/mL [facility] [address] [facility] [address] Urine Cocaine Screen November 11, 2021 7:40pm Negative Negative Cocaine Cutoff level 300 ng/mL [address] [address] Urine Cannabinoids Screen November 11, 2021 7:40pm Negative Negative THC Cutoff level 50 ng/mLThis report is intended for use in clinical monitoring and management of patients. It is not intended for use in employment related drug testing or court related proceedings. Samples are not routinely tested for adulteration and are assumed to be within the normal physiological pH range of 5 - 8. [address] [address] Diagnostic Imaging Reports Report Dictated Date/Time Dictated By Status Radiology Report November 11, 2021 6:29pm Loki Singh III, MD completed [address] [address] Patient Name: Racquel Gómez Medical Record#: [id number] Address: [address] [place] [address] City/State/Zip: [place] [address]: Marie Caro MD Insurance: [employer] [facility] Re quired /Age/Sex: 1960/61/F Self Pay Admit/Reg Date: 11/11/[address]: Luis Caro MD Location: [place]/ PCP: PcpMd MARTHA Huynh Date of Service: 11/11/21 Order (s): CT head stroke wo con CPT Code: 46343 Report Number: [id number] Reason for Exam: left arm weakness, pronator drift CT HEAD WITHOUT CONTRAST HISTORY: Code stroke. Left arm weakness, pronator drift. TECHNIQUE: Serial axial images were obtained on a multidetector CT through the head without the use of intravenous contrast. Multiplanar 2D MPR reformatted images were created at the scanner and used in the interpretation of results. The CT scanner adjusted the mA and/or kV according to patient size. COMPARISON: None. FINDINGS: No evidence of acute intracranial hemorrhage, extra-axial fluid collection or significant mass effect. No evidence of acute territorial infarction. There is diffuse parenchymal volume loss. There are scattered periventricular, deep and subcortical white matter hypodensities which are nonspecific but compatible with chronic microangiopathy. There are atherosclerotic calcifications along the cavernous portions of the bilateral internal carotid arteries. There is mild mucosal thickening in the ethmoid and maxillary sinuses. There is opacification of the majority of the right mastoid air cells, compatible with mastoid effusion or or possible mastoiditis; recommend clinical correlation. The middle ear cavities are clear. No displaced calvarial fracture. The orbits and soft tissues appear unremarkable. IMPRESSION: 1. No acute intracranial hemorrhage or significant mass effect. 2. No evidence of an acute territorial infarct. If there is ongoing clinical concern for acute infarct, MRI is recommended for further evaluation as it is more sensitive for the detection of such. 3. Periventricular, deep and subcortical white matter hypodensities are nonspecific but compatible with chronic microangiopathy. 4. Mild to moderate diffuse parenchymal volume loss and atherosclerotic changes along the cavernous internal carotid arteries. 5. Opacification of the majority of the right mastoid air cells, compatible with mastoid effusion or or possible mastoiditis; recommend clinical correlation. The middle ear cavities are clear. Findings discussed with Dr. Caro by Dr. Loki Singh on 11/12/2019 at 6:38 PM. Dictated By: Loki Singh III, MD 11/11/211828 Signed By: Loki Singh III, MD 11/11/211848 TD/TT: 11/11/211828Tech: [id number] cc: GIGI; [id number]* Luis Caro MD; Md Toña MD Report Dictated Date/Time Dictated By Status Radiology Report November 11, 2021 6:43pm Loki Singh III, [place] [address] Patient Name: Racquel Gómez Medical Record#: [id number] Address: [address] [place] [address] City/State/Zip: [place] [address]: Marie Caro MD Insurance: [employer] [facility] Re quired /Age/Sex: 1960/61/F Self Pay Admit/Reg Date: 11/11/[address]: Luis Caro MD Location: [place]/ PCP: Md MARTHA Ding Date of Service: 11/11/21 Order (s): CT angio head stroke CPT Code: 65071 Report Number: [id number] Reason for Exam: left arm weakness, pronator drift CTA HEAD WITH CONTRAST HISTORY: Code stroke. Left arm weakness, pronator drift. TECHNIQUE: CTA of the head was performed after the administration of intravenous contrast according to the departmental protocol. MIP 3D angiographic rendering was then performed at the scanner. COMPARISON: Noncontrast CT head dated 11/11/2021. FINDINGS: Atherosclerotic calcified plaque is noted involving the cavernous and clinoid portions of the internal carotid arteries, with mild focal stenosis involving the bilateral clinoid segments but with reconstitution on both sides. The anterior and middle cerebral arteries are patent with normal contrast enhancement and branching pattern. There is a normal anterior communicating artery complex. The vertebral and basilar arteries demonstrate normal enhancement without stenosis or occlusion. The posterior cerebral arteries have a normal caliber and branching pattern. The posterior communicating arteries are visualized. There is no evidence of stenosis, occlusion, aneurysm or arteriovenous malformation. IMPRESSION: 1. No evidence of large vessel occlusion, high-grade stenosis or aneurysm. 2. Calcified atherosclerotic plaque along the bilateral carotid siphons with mild focal stenosis of the internal carotid artery clinoid segments bilaterally. Findings discussed with Dr. Caro by Dr. Loki Singh on 11/12/2019 at 6:38 PM. Dictated By: Loki Singh III, MD 11/11/211842 Signed By: Loki Singh III, MD 11/11/211857 TD/TT: 11/11/211842Tech: [id number] cc: GIGI; [id number]* Luis Caro MD; Pcp-MD Jc Report Dictated Date/Time Dictated By Status Radiology Report November 11, 2021 6:51pm Loki Singh III, MD completed [address] [address] Patient Name: Racquel Gómez Medical Record#: [id number] Address: [address] [place] [address] City/State/Zip: [place] [address]: Marie Caro MD Insurance: [employer] [facility] Re quired /Age/Sex: 1960/61/F Self Pay Admit/Reg Date: 11/11/[address]: Luis Caro MD Location: [place]/ PCP: Pcp-Md MARTHA Greene Date of Service: 11/11/21 Order (s): CT cervical spine wo con CPT Code: 98484 Report Number: [id number] Reason for Exam: left sided neck pain CT CERVICAL SPINE WITHOUT CONTRAST HISTORY: Left-sided neck pain, left arm weakness, pronator drift. COMPARISON: None. TECHNIQUE: Serial axial images were obtained through the cervical spine without the use of intravenous contrast on a multidetector CT. Multiplanar reformatted images were then obtained. Automated exposure control and iterative reconstruction techniques were used. FINDINGS: Cervical vertebral body height and alignment is maintained, without evidence of fracture or subluxation and with normal lordotic curvature. The intervertebral disc spaces are preserved. There is small posterior disc osteophyte complexes at C5-6 and C6-C7 without evidence of significant spinal canal stenosis. There is facet/uncovertebral arthropathy resulting in moderate to severe osseous neural foraminal stenosis on the right at C6-C7. The remaining levels demonstrate no significant osseous neural foraminal narrowing. The prevertebral and paraspinal soft tissues appear unremarkable. There is opacification of the majority of the right mastoid air cells, which may reflect mastoid effusion or mastoiditis; recommend clinical correlation. The thyroid appears unremarkable. There is no significant calcified atherosclerotic plaque at the carotid bifurcations. The lung apices appear clear. IMPRESSION: 1. No evidence of fracture or malalignment. 2. There is facet/uncovertebral arthropathy resulting in moderate to severe osseous neural foraminal stenosis on the right at C6-C7. Remaining levels demonstrate no significant spinal canal or osseous neural foraminal narrowing. 3. Opacification of the majority of the right mastoid air cells is nonspecific and may reflect mastoid effusion or mastoiditis; recommend clinical correlation. Dictated By: Loki Singh III, MD 11/11/211850 Signed By: Loki Singh III, MD 11/11/211902 TD/TT: 11/11/211850Tech: [id number] cc: GIGI; [id number]* Luis Caro MD; Pcp-MD Jc Vital Signs Vital Reading Result Reference Range Collection Date/Time Height 165.1 cm November 11, 2021 4:46pm Weight 87.08 kg November 11, 2021 4:46pm Body Temperature 98.1 [degF] 97.6-99.6 November 11, 2 022 4:46pm Heart Rate 72 /min 60-90 November 11, 2021 8:40pm Respiratory rate 18 /min 12-24 November 11, 2 022 8:40pm Oxygen saturation by Pulse oximetry 97 % 95-10 0 November 11, 2021 8:40pm BP Systolic 108 mm[Hg] 90-140 November 11, 2021 8:40pm BP Diastolic 66 mm[Hg] 60-90 November 11, 2021 8:40pm BMI (Body Mass Index) 31.9 kg/m2 November 112021 4:46pm Advance Directives Advance Directive Response Recorded Date/ Time Advance Directives No November 11 4:47pm Health Care Proxy No November 11, 2021 4:47pm Insurance Providers Guarantor Racquel Gómez Address [address] [address] Contact Info. Home Phone: Payer Policy Id Coverage Id Subscriber's Name Subscriber Id Effective Date Expiration Date [facility] Required [id number] Racquel Gómez [id number] Self Pay Self N/A Encounters Encounter Location(s) Arrival/Admit Date Discharge/Depart Date Provider(s) Departed Emergency [facility]-Emergency Department November 11, 2021 4:42pm November 11, 2021 9:44pm null Plan of Treatment Future Tests Future scheduled test information is unavailable Pending Tests Test Name Date ordered Homocysteine November 11, 2021 7:15p m Future Visits Future appointment information is unavailable Referrals to Other Providers Reason for Referral Referral Start Date Provider Provider Contact Information Provider Address Pcp-Md MARTHA Greene Future Procedures Future procedure information is unavailable Future Medications Future medication information is unavailable Patient Instructions ED Radiculopathy, Cervical Goals Acute Goals Follow-up as directed by the inpatient medical physician running your service. Return to the emergency room for any new concerns or sudden changes neurology feel require emergency medical attention.
[2022-11-03 17:36] LABS: Appearance Urine Clear; Color Urine Yellow; Glucose Urine UA Negative (Negative); Leukocyte Esterase Urine Trace (Negative); Nitrite Urine Negative (Negative); PH 8.5 (5.0-9.0); UMIC TRIGGER UACC YES; Urine Blood Negative (Negative); Urine Ketones Negative (Negative); Urine Protein Negative (Neg-Trace)
[2022-11-03 17:38] LABS: Bacteria Urine None Seen (None Seen); Hyaline Casts Urine 0-2 /LPF (0-2); Squamous Epithelial Cell Urine 0-2 /HPF (0-2); WBC Urine 0-5 /HPF (0-5)
[2022-11-03 17:39] LABS: Hemoglobin 12.6 g/dl (12.0-16.0); Imm Gran Abs Auto 0.02 X10*3/uL (0.00-0.03); Imm Gran Pct Auto 0.3 % (0.0-0.4); MANUAL DIFF FLAG SCAN; PLT CLUMP 1; Red Cell Distribution Width 14.4 % (11.0-16.0); SCAN SMEAR FLAG 1
[2022-11-03 17:41] LABS: Basophils Absolute Auto 0.1 X10*3/uL (0.0-0.2); Eosinophils Absolute Auto 0.2 X10*3/uL (0.0-0.4); Eosinophils Percent Auto 2.8 % (0-4); Hematocrit 38.7 % (37.0-47.0); Lymphocytes Absolute Auto 2.4 X10*3/uL (1.2-4.9); Lymphocytes Percent Auto 42.6 % (20-40); Mean Corpuscular HGB Conc 32.6 g/dl (31.0-35.0); Mean Corpuscular Hemoglobin 28.5 pg (27.0-33.0); Mean Corpuscular Volume 87.6 fL (80.0-98.0); Monocytes Absolute Auto 0.5 X10*3/uL (0.1-1.2); Monocytes Percent Auto 7.9 % (2-11); Neutrophils Absolute Auto 2.6 x10*3/uL (2.0-8.3); Neutrophils Percent Auto 45.4 % (45-73); Red Blood Count 4.42 X10*6/uL (4.20-5.50)
[2022-11-03 17:41] LABS: RBC Urine 0-2 /HPF (0-2)
[2022-11-03 17:59] LABS: Platelet Count 194 X10*3/uL (160-400); White Blood Count 5.7 X10*3/uL (4.8-10.8)
[2022-11-03 18:00] LABS: SLIDE REVIEW VERIFIED
[2022-11-03] MEDS: ondansetron HCL 4 MG/2 ML VIAL IVPUSH (18:00)
[2022-11-03] MEDS: Morphine Sulfate 4 MG/ML CARTRIDGE IVPUSH (18:00)
[2022-11-03] MEDS: 0.9 % Sodium Chloride 1,000 ML 999 ML IV (18:02)
[2022-11-03 18:26] LABS: Alanine Aminotransferase 12 U/L (0-31); Albumin Level 4.3 g/dL (3.5-5.0); Alkaline Phosphatase 79 U/L (39-117); Anion Gap 8 (12-20); Aspartate Amino Transferase 13 U/L (5-31); Bilirubin Total 0.7 mg/dL (0.0-1.0); Blood Urea Nitrogen 13 mg/dL (9-16); Calcium 9.6 mg/dL (8.4-10.2); Carbon Dioxide 30 mmol/L (22-29); Chloride 108 mmol/L (96-108); Creatinine Clr Calc Pharmacy 69.5; Estimated Glomerular Filt Rate > 60; Glucose Random 87 mg/dL (60-115); Lipase 24 U/L (8-78); Potassium 4.3 mmol/L (3.3-5.1); Sodium 142 mmol/L (135-145); Total Protein 6.4 g/dL (6.5-8.0)
[2022-11-03] MEDS: iohexoL 350 MG/ML 100 ML INFUS..BTL IV (18:38)
--- NOTE | 2022-11-03 18:42 | PC.NURSE ---
late entry: All medications were delayed due to this RN and other RN unable to obtain IV access, SVEN Muñoz into room to attempt ultrasound guided IV. IV was successful and pt has received all medications per SEP. Pt is now resting comfortably with no complaints, respirations even and unlabored, skin pwd, 2/10 pain. 1:[address] for safety due to pt coming into [facility]
--- NOTE | 2022-11-03 18:48 | PC.NURSE ---
[facility] called for update on pt, spoke with nursing over there. call back number is [phone]
--- NOTE | 2022-11-03 19:43 | PC.NURSE ---
pt reporting increased pain, PA Toni aware, no new orders at this time
[2022-11-03] MEDS: Metoclopramide HCl 10 MG/2 ML VIAL IVPUSH (20:10)
[2022-11-03 20:18] VITALS: BP 125/66; PULSE 82; RESP 17; TEMP 36.9; O2SAT 97
[2022-11-03 21:17] VITALS: BP 91/64; PULSE 89; RESP 16; TEMP 36.3; O2SAT 97
== END 2022-11-03 22:13 | disposition home or self-care (01) ==
PROVIDERS: Physician Assistant; Emergency Provider Emergency Medicine
DX: K59.00 Constipation, unspecified (principal); R10.2 Pelvic and perineal pain; I49.8 Other specified cardiac arrhythmias; Z79.899 Other long term (current) drug therapy
CPT/HCPCS: 36415; 74177; 80053; 81001; 83690; 83735; 85025; 93005; 96361; 96374; 96375; 99285; J2270; J2405; J2765; Q9967